=== PATIENT | female | born 1970 | race Caucasian/White ===

== ENCOUNTER 2018-02-06 19:51 | Inpatient (IN) | payer SELFPAY ==
[2018-02-06] MEDS ORDERED: NA CHLORIDE 0.9% 1,000 ML ONE (20:21)
--- NOTE | 2018-02-06 20:49 | RAD REPORT ---
EXAM DESCRIPTION: CT - Head Brain Wo Cont - 02/06/2018 8:38 pm CLINICAL HISTORY: Altered consciousness. COMPARISON: None. TECHNIQUE: All CT scans are performed using dose optimization technique as appropriate and may inclu de automated exposure control or mA/KV adjustment according to patient size. FINDINGS: No intracranial hemorrhage, hydrocephalus or extra-axial fluid collection.No areas of brai n edema or evidence of midline shift. The paranasal sinuses and mastoids are clear. The calvarium is intact. IMPRESSION: No acute intracranial abnormality.
[2018-02-06 21:04] LABS: Blood Gas Oxyhemoglobin 89.5 % (94-97); Blood O2 Saturation 91.5 % (92-98.5)
[2018-02-06 21:21] LABS: Absolute Lymphocytes (CBC) 0.9 K/uL (0.7-4.9); Absolute Monocytes 1.7 K/uL (0.1-1.3); Absolute Neutrophil 12.7 K/uL (1.8-8.0); Basophils % 0.3 % (0-1.3); Hematocrit 42.9 % (36.0-45.0); Lymphocytes % 5.8 % (15.3-44.8); MCH 31.7 pg (27.0-35.0); MCV 94.5 fL (80-100); MPV 8.3 fL (7.6-11.3); Monocytes % 10.9 % (3.3-12.3); RBC Red Blood Cell Count 4.54 M/uL (3.86-4.86)
[2018-02-06 21:36] LABS: Bicarbonate 25 mEq/L (21-31); Glucose Level 133 mg/dL (65-120); Potassium 3.2 mEq/L (3.6-5.0); Sodium Level 140 mEq/L (135-145)
[2018-02-06 21:45] LABS: Protime INR 1.22
[2018-02-06 21:46] LABS: ALT/SGPT 43 IU/L (10-60); AST/SGOT 86 IU/L (10-42); Albumin 4.5 g/dL (3.2-5.5); Alkaline Phosphatase 108 IU/L (42-121); BUN Blood Urea Nitrogen 22 mg/dL (6-20); Bilirubin Direct 0.2 mg/dL (0-0.2); Bilirubin Total 0.8 mg/dL (0.3-1.2); Protein, Total 8.5 g/dL (6.0-8.3)
[2018-02-06 22:37] LABS: Alcohol Serum/Plasma < 10 mg/dl
[2018-02-06 22:38] LABS: Creatine Phosphokinase 6501 IU/L (22-269)
[2018-02-06] MEDS ORDERED: MORPHINE 2 MG/ML SYR IV PRN (22:59)
[2018-02-06] MEDS ORDERED: ONDANSETRON 4 MG/2 ML VIAL IV PRN (22:59)
[2018-02-06] MEDS ORDERED: ACETAMINOPHEN 500 MG TAB PO PRN (22:59)
[2018-02-06] MEDS: NA CHLORIDE 0.9% 1,000 ML IV SCH (23:00)
[2018-02-06 23:15] LABS: Urine Blood 3+ (NEG); Urine Glucose NEGATIVE (NEG); Urine Protein 2+ (NEG); Urine Specific Gravity 1.025 (1.005-1.030)
[2018-02-06 23:15] LABS: Urine Specific Gravity 1.025 (1.005-1.030)
--- NOTE | 2018-02-06 23:16 | ER ---
Nurse's Notes [facility] Name: Carmina Stewart Age: 47 yrs Sex: Female : 1970 Arrival Date: 02/06/2018 Time: 19:56 Bed 3 Private MD: Harjeet Worthy T Diagnosis: Rhabdomyolysis;Adverse effect of benzodiazepines Presentation: 02/06 19:50 Presenting complaint: EMS states: that pt was found kneeling next to bed where she had fc been since 1500. Pt is oriented to person and place. Has denied suicide attempt. Has taken 60 tablets of Xanax 1 mg since the , unknown amt today. Does have abrasions to both knees. Transition of care: patient was not received from another setting of care. Onset of symptoms was February 06, 2018. Risk Assessment: Do you want to hurt yourself or someone else? Patient reports no desire to harm self or others. Initial Sepsis Screen: Does the patient meet any 2 criteria? HR > 90 bpm. Yes Does the patient have a suspected source of infection? No. Patient's initial sepsis screen is negative. Care prior to arrival: Medication(s) given: Normal saline infusion, 250 ml IV initiated. 20 GA, in the right hand, Glucose check: 152. 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 - Social history:: Smoking status: unknown. - Ebola Screening: : Unable to complete screening because patient does not understand. Screenin:03 Abuse screen: Denies threats or abuse. Nutritional screening: No deficits noted. fc Tuberculosis screening: No symptoms or risk factors identified. 02/07 01:15 Fall Risk Fall in past 12 months (25 points). Secondary diagnosis (15 points) IV access ao (20 points). Ambulatory Aid- None/Bed Rest/Nurse Assist (0 pts). Gait- Impaired (20 pts.). Mental Status- Overestimates/Forgets Limitations (15 pts.). Total Sanders Fall Scale indicates High Risk Score (45 or more points). Fall prevention measures have been instituted. Side Rails Up X 2 Placed Close to Nursing Station Frequent Obs/Assessments Occuring Family Present and informed to notify staff if the need to leave the bedside. Assessment: 02/06 20:01 General: Appears in no apparent distress. obese, unkempt, malnourished, Behavior is ao inappropriate for age, listless, uncooperative. Pain: Denies pain. Neuro: Level of Consciousness is awake, Oriented to person, Speech is slurred. Cardiovascular: Heart tones S1 S2 Capillary refill < 3 seconds Patient's skin is warm and dry. Respiratory: Airway is patent Respiratory effort is even, unlabored, Breath sounds are clear bilaterally. GI: Abdomen is obese, Bowel sounds. : Patient urinated herself. EENT: No signs and/or symptoms were reported regarding the EENT system. Derm: Skin is intact, Skin is diaphoretic, Skin is pale. Musculoskeletal: Circulation, motion, and sensation intact. Right leg flexed and stabilize on a board. 21:29 Reassessment: Patient appears in no apparent distress at this time. Patient and/or ao family updated on plan of care and expected duration. Pain level reassessed. 22:40 Reassessment: Critical CPK 6501, physician notified, no new orders obtained at this ea time. 22:49 Reassessment: Patient appears in no apparent distress at this time. Patient and/or ao family updated on plan of care and expected duration. Pain level reassessed. Patient in no appeared distress. 02/07 03:46 Reassessment: Patient denies suicidal ideation while in the ER stay. Report given to ao ICU nurse. Patient stated that she was suicidal when got the ICU. Vital Signs: 02/06 19:50 BP 145 / 93; Pulse 116; Resp 18; Temp 99.7(O); Pulse Ox 89% on R/A; Pain 0/10; fc 21:29 BP 171 / 109; Pulse 114; Pulse Ox 92% ; ao 22:42 BP 168 / 112; Pulse 109; Resp 20; Pulse Ox 93% on 5 lpm NC; ao 23:39 BP 153 / 105; Pulse 106; Resp 22; Pulse Ox 98% on R/A; ao ED Course: 19:50 Arm band placed on Patient placed in an exam room, on a stretcher. fc 19:50 Patient has correct armband on for positive identification. Placed in gown. Bed in low fc position. Call light in reach. Side rails up X2. monitor and storage bin tender on. Pulse ox on. NIBP on. 19:56 Patient arrived in ED. fc 20:00 Varinder Krishna, RN is Primary Nurse. ao 20:01 Triage completed. fc 20:01 Antonio Fontaine MD is Attending Physician. gs 20:[address] via wheelchair. mw3 20:37 CT completed. Patient tolerated procedure well. Patient moved back from CT. mw3 20:37 CT Head Brain wo Cont In Process Unspecified. EDMS 20:38 Harjeet Worthy MD is Private Physician. 23:15 Precious Benson MD is Hospitalizing Provider. 02/07 01:15 No provider procedures requiring assistance completed. Patient admitted, IV remains in ao place. Administered Medications: 02/06 21:35 Drug: NS 0.9% 1000 ml Route: IV; Rate: 1 bolus; Site: left antecubital; ao 02/07 02:27 Follow up: IV Status: Completed infusion ao 00:37 Drug: NS 0.9% 1000 ml Route: IV; Rate: 1 bolus; Site: left antecubital; ao 02:27 Follow up: IV Status: Completed infusion; IV Intake: 1000ml ao Intake: 02:27 IV: 1000ml; Total: 1000ml. ao Outcome: 02/06 23:16 Decision to Hospitalize by Provider. 02/07 01:15 Admitted to ER Hold. Please see [facility] for further documentation. ao Condition: stable Instructed on the need for admit. 03:48 Patient left the ED. ao Signatures: Dispatcher [employer] EDMS Heidy Granger RN RN Varinder Krishna RN RN ao Barbara Daniel RN RN ea Starr, Gregory, MD MD Ashley Mathews mw3 Corrections: (The following items were deleted from the chart) 02/06 20:04 19:50 Presenting complaint: EMS states: that pt was found kneeling next to bed where fc she had been since 1500. Pt is oriented to person and place. Has denied suicide attempt. Has taken 60 tablets of Xanax 1 mg since the . Does have abrasions to both knees. fc 02/07 05:13 02/06 23:39 BP 92 / 62; Pulse 106bpm; Resp 22bpm; Pulse Ox 98% RA; ao ao
--- NOTE | 2018-02-06 23:16 | EDPHYS ---
Physician Documentation [facility] Name: Carmina Stewart Age: 47 yrs Sex: Female : 1970 Arrival Date: 02/06/2018 Time: 19:56 Bed 3 Private MD: Harjeet Worthy T ED Physician Antonio Fontaine HPI: 02/06 23:06 This 47 yrs old Female presents to ER via EMS with complaints of Possible gs Overdose. 23:06 The patient presents to the emergency department after a known overdose, that was gs intentional. Context: Method: the patient has a confirmed or suspected ingestion, of benzodiazepines. Associated signs and symptoms: Pertinent positives: decreased level of consciousness. Severity of symptoms: At their worst the symptoms were moderate in the emergency department the symptoms are unchanged. The patient has experienced similar episodes in the past, a few times. 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 - Social history:: Smoking status: unknown. - Ebola Screening: : Unable to complete screening because patient does not understand. ROS: 23:06 All other systems are negative. gs Exam: 23:06 Head/Face: Normocephalic, atraumatic. Eyes: Pupils equal round and reactive to light, gs extra-ocular motions intact. Lids and lashes normal. Conjunctiva and sclera are non-icteric and not injected. Cornea within normal limits. Periorbital areas with no swelling, redness, or edema. ENT: Nares patent. No nasal discharge, no septal abnormalities noted. Tympanic membranes are normal and external auditory canals are clear. Oropharynx with no redness, swelling, or masses, exudates, or evidence of obstruction, uvula midline. Mucous membranes moist. Neck: Trachea midline, no thyromegaly or masses palpated, and no cervical lymphadenopathy. Supple, full range of motion without nuchal rigidity, or vertebral point tenderness. No Meningismus. Chest/axilla: Normal chest wall appearance and motion. Nontender with no deformity. No lesions are appreciated. 23:06 Abdomen/GI: Soft, non-tender, with normal bowel sounds. No distension or tympany. No guarding or rebound. No evidence of tenderness throughout. Back: No spinal tenderness. No costovertebral tenderness. Full range of motion. Skin: Warm, dry with normal turgor. Normal color with no rashes, no lesions, and no evidence of cellulitis. MS/ Extremity: Pulses equal, no cyanosis. Neurovascular intact. Full, normal range of motion. 23:06 Constitutional: The patient appears alert, awake. 23:06 Cardiovascular: Rate: tachycardic, Rhythm: regular, Pulses: no pulse deficits are appreciated. 23:06 ECG was reviewed by the Attending Physician. 23:06 Skin: injury, abrasion(s), very small abrasion noted, abrasion superficial. 23:06 Neuro: Orientation: to person, Cranial nerves: CN II- XII are normal as tested, Motor: moves all fours. Vital Signs: 19:50 BP 145 / 93; Pulse 116; Resp 18; Temp 99.7(O); Pulse Ox 89% on R/A; Pain 0/10; fc 21:29 BP 171 / 109; Pulse 114; Pulse Ox 92% ; ao 22:42 BP 168 / 112; Pulse 109; Resp 20; Pulse Ox 93% on 5 lpm NC; ao 23:39 BP 153 / 105; Pulse 106; Resp 22; Pulse Ox 98% on R/A; ao MDM: 20:12 Patient medically screened. gs 23:06 Differential diagnosis: Ingestion/exposure to xanax polypharmacy, hypoglycemia, closed gs head injury, intracranial hemorrhage, rhabdo. Data reviewed: vital signs, nurses notes. 02/06 20:15 Order name: Acetaminophen; Complete Time: 22:45 02/06 20:15 Order name: Basic Metabolic Panel; Complete Time: 22:45 02/06 20:15 Order name: CBC with Diff; Complete Time: 22:45 02/06 20:15 Order name: ETOH Level; Complete Time: 22:45 02/06 20:15 Order name: Hepatic Function; Complete Time: 22:45 02/06 20:15 Order name: PT-INR; Complete Time: 22:45 02/06 20:15 Order name: Salicylate; Complete Time: 22:45 02/06 20:15 Order name: Urine Drug Screen 02/06 20:15 Order name: AMMONIA 02/06 20:15 Order name: CPK; Complete Time: 22:45 02/06 20:15 Order name: ABG 02/06 23:08 Order name: Urine Dipstick--Ancillary (enter results) [facility] 02/06 23:10 Order name: Urine --Ancillary (enter results) [facility] 02/06 23:15 Order name: Urine --Ancillary; Complete Time: 00:01 EDNC 02/06 20:15 Order name: EKG; Complete Time: 20:16 02/06 20:15 Order name: EKG - Nurse/Tech; Complete Time: 20:18 02/06 20:15 Order name: IV Saline Lock; Complete Time: 20:18 02/06 20:15 Order name: Labs collected and sent; Complete Time: 23:17 02/06 20:15 Order name: Urine Dipstick-Ancillary (obtain specimen); Complete Time: 23:17 02/06 20:15 Order name: CT Head Brain wo Cont; Complete Time: 22:45 02/06 23:01 Order name: CONS Pharmacy Consult EDNC 02/06 23:01 Order name: Regular EDNC 02/06 23:16 Order name: Urine Dipstick-Ancillary; Complete Time: 00:01 EDMS EC:06 Rate is 114 beats/min. Rhythm is regular. MA interval is normal. QRS interval is gs normal. QT interval is prolonged. T waves are Flattened. Clinical impression: NSR w/ Non-specific ST/T Changes. Interpreted by me. Administered Medications: 21:35 Drug: NS 0.9% 1000 ml Route: IV; Rate: 1 bolus; Site: left antecubital; ao 02/07 02:27 Follow up: IV Status: Completed infusion ao 00:37 Drug: NS 0.9% 1000 ml Route: IV; Rate: 1 bolus; Site: left antecubital; ao 02:27 Follow up: IV Status: Completed infusion; IV Intake: 1000ml ao Disposition: 02/06/18 23:16 Hospitalization ordered by Precious Benson for Inpatient Admission. Preliminary diagnosis are Rhabdomyolysis, Adverse effect of benzodiazepines. - Bed requested for Intensive Care Unit. - Status is Inpatient Admission. ao - Condition is Stable. - Problem is new. - Symptoms have improved. UTI on Admission? No Signatures: Dispatcher [employer] EDMS Germain Ferrer 2 Maya Monreal RN RN Heidy Granger RN KIRILL Varinder Krishna RN RN ao Antonio Fontaine MD MD Corrections: (The following items were deleted from the chart) 02/06 23:18 23:16 Hospitalization Ordered by Precious Benson MD for Inpatient Admission. Preliminary diagnosis is Rhabdomyolysis; Adverse effect of benzodiazepines. Bed requested for Telemetry/MedSurg (Inpatient). Status is Inpatient Admission. Condition is Stable. Problem is new. Symptoms have improved. UTI on Admission? No. 23:19 23:18 02/06/2018 23:16 Hospitalization Ordered by Precious Benson MD for Inpatient rg2 Admission. Preliminary diagnosis is Rhabdomyolysis; Adverse effect of benzodiazepines. Bed requested for Intensive Care Unit. Status is Inpatient Admission. Condition is Stable. Problem is new. Symptoms have improved. UTI on Admission? No. 02/07 00:31 02/06 23:19 02/06/2018 23:16 Hospitalization Ordered by Precious Benson MD for Inpatient rg2 Admission. Preliminary diagnosis is Rhabdomyolysis; Adverse effect of benzodiazepines. Bed requested for Intensive Care Unit. Status is Inpatient Admission. Condition is Stable. Problem is new. Symptoms have improved. UTI on Admission? No. rg2 02/07 02:49 00:31 02/06/2018 23:16 Hospitalization Ordered by Precious Benson MD for Inpatient mw Admission. Preliminary diagnosis is Rhabdomyolysis; Adverse effect of benzodiazepines. Bed requested for [facility] ER HOLD. Status is Inpatient Admission. Condition is Stable. Problem is new. Symptoms have improved. UTI on Admission? No. rg2 03:48 02:49 02/06/2018 23:16 Hospitalization Ordered by Precious Benson MD for Inpatient ao Admission. Preliminary diagnosis is Rhabdomyolysis; Adverse effect of benzodiazepines. Bed requested for Intensive Care Unit. Status is Inpatient Admission. Condition is Stable. Problem is new. Symptoms have improved. UTI on Admission? No.
[2018-02-07 00:29] LABS: Barbiturates NEGATIVE; Benzodiazepines NEGATIVE; Cocaine NEGATIVE; METHAMPHETAM NEGATIVE (NEGATIVE); Opiates NEGATIVE; Phencyclidine NEGATIVE; THC Cannibis NEGATIVE
[2018-02-07] MEDS ORDERED: NA CHLORIDE 0.9% 1,000 ML ONE (00:37)
[2018-02-07] MEDS: NA CHLORIDE 0.9% 1,000 ML IV SCH (05:11)
[2018-02-07 05:24] LABS: Absolute Lymphocytes (CBC) 0.7 K/uL (0.7-4.9); Absolute Monocytes 0.9 K/uL (0.1-1.3); Absolute Neutrophil 12.1 K/uL (1.8-8.0); Basophils % 0.2 % (0-1.3); Hematocrit 40.8 % (36.0-45.0); Lymphocytes % 4.8 % (15.3-44.8); MCH 31.6 pg (27.0-35.0); MCV 94.6 fL (80-100); MPV 8.5 fL (7.6-11.3); Monocytes % 6.8 % (3.3-12.3); RBC Red Blood Cell Count 4.31 M/uL (3.86-4.86)
[2018-02-07 05:50] LABS: Albumin 3.8 g/dL (3.2-5.5); Bilirubin Total 0.8 mg/dL (0.3-1.2); Potassium 3.7 mEq/L (3.6-5.0); Protein, Total 6.9 g/dL (6.0-8.3)
[2018-02-07 06:11] LABS: Blood Morphology Comment NOT SEEN (NOT SEEN); Platelet Estimate ADEQ
[2018-02-07] MEDS ORDERED: MORPHINE 4 MG/ML SYR IV PRN (07:27)
[2018-02-07] MEDS ORDERED: PNEUMOCOCCAL VACCINE 0.5 ML IMVAC ONE (08:00)
--- NOTE | 2018-02-07 10:09 | RAD REPORT ---
EXAM DESCRIPTION: RAD - Chest Single View - 02/07/2018 9:23 am CLINICAL HISTORY: Pneumonia COMPARISON: 02/06/2008 FINDINGS: Portable technique limits examination quality. Linear opacities in the right lung base are noted with elevated right hemidiaphragm, probably represe nting subsegmental atelectasis. Early pneumonia in this location is difficult to rule out. The left l omer is grossly clear. The heart is normal in size. No displaced fractures.
--- NOTE | 2018-02-07 10:19 | EKG ---
Test Date: 2018-02-06 Test Time: 19:55:17 Child Health Associate: JULIO MEASUREMENT RESULTS: Intervals: Rate: 114 MT: 126 QRSD: 100 QT: 366 QTc: 504 [place]: P: 47 MT: 126 QRS: 18 T: 42 INTERPRETIVE STATEMENTS: Sinus tachycardia Nonspecific ST and T wave abnormality Abnormal ECG No previous ECG available for comparison Electronically Signed On 02-07-18 10:18:44 CDT by William Dewey
[2018-02-07 11:16] LABS: Absolute Lymphocytes (CBC) 0.9 K/uL (0.7-4.9); Absolute Monocytes 1.2 K/uL (0.1-1.3); Absolute Neutrophil 10.9 K/uL (1.8-8.0); Basophils % 0.1 % (0-1.3); Hematocrit 39.1 % (36.0-45.0); Lymphocytes % 6.7 % (15.3-44.8); MCH 31.7 pg (27.0-35.0); MCV 95.4 fL (80-100); MPV 8.7 fL (7.6-11.3); Monocytes % 9.1 % (3.3-12.3)
[2018-02-07 11:58] LABS: Magnesium 2.5 mg/dL (1.8-2.5); Phosphorus 2.6 mg/dL (2.5-4.3); Potassium 3.6 mEq/L (3.6-5.0); Thyroid Stimulating Hormone 1.75 uIU/mL (0.34-5.60)
--- NOTE | 2018-02-07 13:00 | P.PN ---
Subjective Date of Service: 02/07/18 Primary Care Provider: Dr. Worthy Chief Complaint: Overdoses intentional Subjective: Doing well (Patient doing better. Patient intentionally took medication-Xanax.) Physical Examination - Vital Signs Temperature: 98.9 F Blood Pressure: 148/77 Pulse: 78 Respirations: 13 Pulse Ox (%): 95 - Physical Exam General: Alert, In no apparent distress, Oriented x3, Cooperative HEENT: Atraumatic Neck: Supple Respiratory: Clear to auscultation bilaterally, Normal air movement Cardiovascular: Normal pulses, Regular rate/rhythm Gastrointestinal: Normal bowel sounds, Soft and benign, Non-distended, No masses , No rebound, No guarding Musculoskeletal: No tenderness, No warmth Integumentary: No tenderness/swelling, No erythema, No warmth, No cyanosis Neurological: Normal speech, Normal strength at 5/5 x4 extr, Normal tone, Abnormal affect (Poor eye contact.) - Studies Laboratory Data (last 24 hrs) 02/06/18 21:05: PT 14.4 H, INR 1.22 02/06/18 21:05: WBC 15.3 H, Hgb 14.4, Hct 42.9, Plt Count 343 02/06/18 21:05: Sodium 140, Potassium 3.2 L, BUN 22 H, Creatinine 1.09 H, Glucose 133 H, Total Bilirubin 0.8, AST 86 H, ALT 43, Alkaline Phosphatase 108 Medications List Reviewed: Yes Assessment & Plan - Problems (Diagnosis) (1) Overdose of medication Current Visit: Yes Status: Acute Plan: Patient reports intentional overdose of Xanax. Patient with depression anxiety. Patient does not Wanna talk in detail. Patient with rhabdomyolysis. Will continue IV fluids. Will monitor CPK. Will monitor and adjust electrolytes. Once improved will patient will need to be evaluated by mental health officer for possible transfer to psychiatric facility to further address. Qualifiers: Encounter type: initial encounter Injury intent: intentional self-harm Qualified Code(s): T50.902A - Poisoning by unspecified drugs, medicaments and biological substances, intentional self-harm, initial encounter (2) Suicide ideation Current Visit: Yes Status: Acute Plan: Overdose intentional. Continue with above plan of care. Patient will need psychiatric evaluation once clinically and medically stable (3) Depression with anxiety Current Visit: Yes Status: Chronic Plan: Patient appears to have depression with anxiety. Will monitor closely. (4) Rhabdomyolysis Current Visit: Yes Status: Acute Plan: Mild dehydration noted. Will continue with IV fluids. Will monitor CPK. Qualifiers: Rhabdomyolysis type: non-traumatic Qualified Code(s): M62.82 - Rhabdomyolysis (5) Atelectasis Current Visit: Yes Status: Acute Plan: Atelectasis noted to the lungs. Will provide incentive spirometer. Will monitor chest x-ray. Will wean off oxygen. (6) Elevated liver function tests Current Visit: Yes Status: Acute Plan: Likely from medication. Will monitor closely. Will check for hepatitis. (7) Hypokalemia Current Visit: Yes Status: Acute Plan: Will monitor and replace appropriately. Replacement protocol in place. Discharge Plan: Psychiatry Plan to discharge in: 48 Hours Time Spent Managing Pts Care (In Minutes): 55
[2018-02-07] MEDS: NACHLORIDE 0.45% 1,000 ML IV SCH ×2 (13:06→22:35)
--- NOTE | 2018-02-07 13:26 | P.HP ---
Certification for Inpatient Patient admitted to: Inpatient With expected LOS: >2 Midnights Patient will require the following post-hospital care: None Practitioner: I am a practitioner with admitting privileges, knowledge of patient current condition, hospital course, and medical plan of care. Services: Services provided to patient in accordance with Admission requirements found in Title 42 Section 412.3 of the Code of Federal Regulations Patient History Date of Service: 02/07/18 Reason for admission: Overdoses intentional History of Present Illness: Patient is a 47-year-old female who has a history of major depressive disorder and apparently she has been dealing with a lot of stress in her life. She lives with her mother and father in law who also have a history of depression. They tend to get along fairly well for the most part but occasionally they have arguments. Patient states that they had a disagreement and afterwards she took 50 Xanax bars. This was roughly 50 mg of Xanax. She had just got a new prescription from her primary care provider for Xanax 1 mg twice a day with 60 pills. This was filled about 5 days ago. So as long as she was using it as prescribed she had roughly 50 pills left which is what I feel she must of consumed. Initially she was very lethargic when I came to see her but she was more arousable when I came back in and visited with her. She does admit to being suicidal. However she regressed taking all that medicine. We will go ahead and have [facility] evaluate her. Patient's CPK is elevated but her renal function is stable. She is having adequate urine output. Monitor renal function as well as urine pH. May need to add bicarb to her fluids pending CPK results. Allergies Sulfa (Sulfonamide Antibiotics) Allergy (Severe, Verified 02/07/18 02:45) Itching/Hives/Rash - Past Medical/Surgical History Has patient received pneumonia vaccine in the past: No Diabetic: No -: Depression Past Surgical History: Patient denies surgical history - Family History Father Family History: Reviewed- Non-Contributory - Social History Smoking Status: Current every day smoker Alcohol use: No CD- Drugs: No Caffeine use: No Place of Residence: Home Review of Systems 10-point ROS is otherwise unremarkable Physical Examination - Vital Signs Temperature: 98.9 F Blood Pressure: 148/77 Pulse: 78 Respirations: 13 Pulse Ox (%): 95 - Physical Exam General: Alert, In no apparent distress, Oriented x3 HEENT: Atraumatic, PERRLA, Mucous membr. moist/pink, EOMI, Sclerae nonicteric Neck: Supple, 2+ carotid pulse no bruit, No LAD, Without JVD or thyroid abnormality Respiratory: Clear to auscultation bilaterally, Normal air movement Cardiovascular: Regular rate/rhythm, Normal S1 S2, No murmurs Gastrointestinal: Normal bowel sounds, Soft and benign, Non-distended, No tenderness Musculoskeletal: No clubbing, No swelling, No tenderness Integumentary: No rashes Neurological: Normal gait, Normal speech, Normal strength at 5/5 x4 extr, Normal tone, Sensation intact, Cranial nerves 3-12 intact, Normal affect Lymphatics: No axilla or inguinal lymphadenopathy - Studies Laboratory Data (last 24 hrs) 02/06/18 21:05: PT 14.4 H, INR 1.22 02/06/18 21:05: WBC 15.3 H, Hgb 14.4, Hct 42.9, Plt Count 343 02/06/18 21:05: Sodium 140, Potassium 3.2 L, BUN 22 H, Creatinine 1.09 H, Glucose 133 H, Total Bilirubin 0.8, AST 86 H, ALT 43, Alkaline Phosphatase 108 Assessment & Plan - Problems (Diagnosis) (1) Overdose of medication Current Visit: Yes Status: Acute Qualifiers: Encounter type: initial encounter Injury intent: intentional self-harm Qualified Code(s): T50.902A - Poisoning by unspecified drugs, medicaments and biological substances, intentional self-harm, initial encounter (2) Rhabdomyolysis Current Visit: Yes Status: Acute Qualifiers: Rhabdomyolysis type: non-traumatic Qualified Code(s): M62.82 - Rhabdomyolysis (3) Suicide ideation Current Visit: Yes Status: Acute (4) Depression with anxiety Current Visit: Yes Status: Chronic - Plan Plan: 1. aggressive IV hydration 2. monitor CPK level 3. suicide check hourly 4. Evaluation by [facility] 5. plan to transfer to inpatient psych facility when patient is medically stable Discharge Plan: Psychiatry Plan to discharge in: 48 Hours - Advance Directives Does patient have a Living Will: No Does patient have a Durable POA for Healthcare: No - Code Status/Comfort Care Code Status Assessed: Yes Code Status: Full Code Critical Care: No Time Spent Managing PTS Care (In Minutes): 50
[2018-02-07] MEDS ORDERED: Morphine 2 MG/2 ML SYR IV PRN (15:45)
[2018-02-07 16:55] LABS: Barbiturates NEGATIVE; Benzodiazepines NEGATIVE; Cocaine NEGATIVE; METHAMPHETAM NEGATIVE (NEGATIVE); Opiates NEGATIVE; Phencyclidine NEGATIVE; THC Cannibis NEGATIVE
[2018-02-08 05:41] LABS: Absolute Lymphocytes (CBC) 2.3 K/uL (0.7-4.9); Absolute Monocytes 1.2 K/uL (0.1-1.3); Absolute Neutrophil 8.1 K/uL (1.8-8.0); Basophils % 0.2 % (0-1.3); Eosinophils % 0.1 % (0-4.4); Hematocrit 38.2 % (36.0-45.0); MCH 31.4 pg (27.0-35.0); MCV 96.8 fL (80-100); MPV 8.8 fL (7.6-11.3); Monocytes % 10.6 % (3.3-12.3); RBC Red Blood Cell Count 3.95 M/uL (3.86-4.86)
[2018-02-08 05:47] LABS: Magnesium 2.4 mg/dL (1.8-2.5); Potassium 3.2 mEq/L (3.6-5.0)
[2018-02-08] MEDS: PANTOPRAZOLE 40MG TABLET PO SCH (05:52)
[2018-02-08] MEDS ORDERED: POTASSIUM 25 MEQ EFFERV TAB PO ONE ×2 (06:24→13:17)
--- NOTE | 2018-02-08 08:14 | RAD REPORT ---
EXAM DESCRIPTION: RAD - Chest Single View - 02/08/2018 6:39 am CLINICAL HISTORY: Atelectasis, shortness of breath COMPARISON: February 07 TECHNIQUE: AP portable chest image was obtained 0611 hours . FINDINGS: Lung volumes remain low. Shallow inspiration, portable technique and large body habitus li link the examination. Heart and vasculature remain prominent. Lung volumes are reduced compared to February 07. No new lung parenchymal process seen. No pneumothorax or large pleural effusion. No acute aortic findings suspected. IMPRESSION: Exam is significantly limited and inspiratory effort is less than prior day imaging. No new or progressive lung parenchymal process confirmed. Minimal failure or volume overload could be masked in this setting.
[2018-02-08] MEDS: NACHLORIDE 0.45% 1,000 ML IV SCH (08:30)
--- NOTE | 2018-02-08 10:42 | P.PN ---
Subjective Date of Service: 02/08/18 Primary Care Provider: Dr. Worthy Chief Complaint: Overdoses intentional Subjective: Improving (Patient in better spirits. Patient eating today.) Physical Examination - Vital Signs Temperature: 97.6 F Blood Pressure: 133/72 Pulse: 71 Respirations: 17 Pulse Ox (%): 95 - Physical Exam General: Alert, In no apparent distress, Oriented x3, Cooperative, Other ( Patient no longer suicidal) HEENT: Atraumatic Neck: Supple Respiratory: Clear to auscultation bilaterally, Normal air movement Cardiovascular: Normal pulses, Regular rate/rhythm Gastrointestinal: Normal bowel sounds, Soft and benign, Non-distended, No tenderness, No masses, No rebound, No guarding Musculoskeletal: No erythema, No tenderness, No warmth Integumentary: No tenderness/swelling, No erythema, No warmth, No cyanosis Neurological: Normal speech, Normal strength at 5/5 x4 extr, Normal tone, Normal affect - Studies Medications List Reviewed: Yes Assessment & Plan - Problems (Diagnosis) (1) Overdose of medication Current Visit: Yes Status: Acute Plan: Patient admits intentional overdose of Xanax. Patient was suicidal at that time. Patient no longer suicidal. Patient with history of bipolar disorder. Patient much improved. Patient will need mental health evaluation for close follow up prior to discharge. Doubt patient no longer needing psychiatric transfer. Will restart of Effexor. Rhabdomyolysis improved. Will ambulate with physical therapy. Qualifiers: Encounter type: initial encounter Injury intent: intentional self-harm Qualified Code(s): T50.902A - Poisoning by unspecified drugs, medicaments and biological substances, intentional self-harm, initial encounter (2) Suicide ideation Current Visit: Yes Status: Acute Plan: Patient presented with intentional overdose with suicide ideation. Patient no longer suicidal. Continue with above plan of care. Await mental health evaluation to obtain close follow up and recommendation (3) Rhabdomyolysis Current Visit: Yes Status: Acute Plan: This continues to improve. Will continue with IV fluids. Will ambulate with physical therapy. Will monitor CPK. Qualifiers: Rhabdomyolysis type: non-traumatic Qualified Code(s): M62.82 - Rhabdomyolysis (4) Atelectasis Current Visit: Yes Status: Acute Plan: Atelectasis noted to the lungs. Will provide incentive spirometer. X-ray shows no pneumonia. Will wean off oxygen (5) Elevated liver function tests Current Visit: Yes Status: Acute Plan: Likely from medication. Will monitor closely. Hepatitis panel pending (6) Hypokalemia Current Visit: Yes Status: Acute Plan: Will monitor and replace appropriately. Replacement protocol in place. (7) Bipolar disorder Current Visit: Yes Status: Chronic Plan: Await mental health evaluation and recommendation. Patient may not need psychiatric transfer. Patient will need close follow up. Qualifiers: Active/Remission status: currently active Current bipolar episode type: depressed Discharge Plan: Home Plan to discharge in: 24 Hours Time Spent Managing Pts Care (In Minutes): 55
[2018-02-08] MEDS ORDERED: FUROSEMIDE 20 MG/ 2ML VIAL IV ONE (12:18)
[2018-02-08] MEDS: VENLAFAXINE HCL 75 MG TABLET PO SCH (20:13)
[2018-02-08] MEDS ORDERED: POTASSIUM CL SA 10 MEQ TAB PO ONE (21:00)
[2018-02-09 05:17] LABS: Absolute Lymphocytes (CBC) 2.1 K/uL (0.7-4.9); Absolute Monocytes 0.9 K/uL (0.1-1.3); Absolute Neutrophil 7.2 K/uL (1.8-8.0); Basophils % 0.5 % (0-1.3); Eosinophils % 0.2 % (0-4.4); Hematocrit 38.4 % (36.0-45.0); Lymphocytes % 20.4 % (15.3-44.8); MCH 31.7 pg (27.0-35.0); MCV 95.3 fL (80-100); MPV 8.8 fL (7.6-11.3); Monocytes % 8.5 % (3.3-12.3); RBC Red Blood Cell Count 4.03 M/uL (3.86-4.86)
[2018-02-09 05:48] LABS: BUN Blood Urea Nitrogen 14 mg/dL (6-20); Bicarbonate 27 mEq/L (21-31); Glucose Level 123 mg/dL (65-120); Magnesium 2.2 mg/dL (1.8-2.5); Potassium 3.7 mEq/L (3.6-5.0); Sodium Level 142 mEq/L (135-145)
[2018-02-09 05:49] LABS: Creatine Phosphokinase 2584 IU/L (22-269)
[2018-02-09] MEDS ORDERED: NA CHLORIDE 0.9% 500 ML IV ONE (05:53)
[2018-02-09 05:54] VITALS: BMI 54.1
[2018-02-09] MEDS: PANTOPRAZOLE 40MG TABLET PO SCH (06:07)
[2018-02-09] MEDS ORDERED: POTASSIUM CL SA 10 MEQ TAB PO ONE (06:30)
[2018-02-09] MEDS: VENLAFAXINE HCL 75 MG TABLET PO SCH (08:37)
[2018-02-09] MEDS ORDERED: MONTELUKAST 10 MG TAB PO SCH (09:00)
--- NOTE | 2018-02-09 10:39 | P.DS ---
Admission Date: 02/06/18 Discharge Date: 02/09/18 Primary Care Provider: Dr. Worthy Disposition: ROUTINE DISCHARGE Discharge Condition: GOOD Reason for Admission: Overdoses intentional Consultations: Mental health provider consultation - Problems (1) Overdose of medication Current Visit: Yes Status: Acute Qualifiers: Encounter type: initial encounter Injury intent: intentional self-harm Qualified Code(s): T50.902A - Poisoning by unspecified drugs, medicaments and biological substances, intentional self-harm, initial encounter (2) Suicide ideation Current Visit: Yes Status: Acute (3) Rhabdomyolysis Current Visit: Yes Status: Acute Qualifiers: Rhabdomyolysis type: non-traumatic Qualified Code(s): M62.82 - Rhabdomyolysis (4) Atelectasis Current Visit: Yes Status: Acute (5) Elevated liver function tests Current Visit: Yes Status: Acute (6) Hypokalemia Current Visit: Yes Status: Acute (7) Bipolar disorder Current Visit: Yes Status: Chronic Qualifiers: Active/Remission status: currently active Current bipolar episode type: depressed (8) Obesity Current Visit: Yes Status: Chronic Qualifiers: Obesity type: due to excess calories Obesity classification: adult class 3 (BMI >= 40) Serious obesity comorbidity presence: with serious comorbidity Body mass index: BMI 50.0-59.9 Qualified Code(s): E66.01 - Morbid (severe) obesity due to excess calories; Z68.43 - Body mass index (BMI) 50-59.9 , adult Brief History of Present Illness: 47-year-old female with history of bipolar disorder came to the ER with altered mental status. Patient was found to have overdose of possible benzodiazepine. Patient recently filled and medication. Patient was evaluated in the emergency room. It was determined that the patient intentionally overdosed on medication. She has been under lot of stress lately. The patient was also found to have rhabdomyolysis. Hospital Course: During the course of her stay patient admitted intentional overdose of medication. She was remorseful. She did not want to do this again. When the patient was clinically stable, mental health officer evaluated the patient. There was no need for transfer to psychiatric facility. Patient has a good support system at home. Patient willing to follow up with psychiatry within the next 3 days to be further evaluated and continue her care. At discharge patient is not suicidal. At discharge patient will continue with Effexor 150 mg 1 pill twice daily and Seroquel 1200 mg at night. I will recommend to discontinue benzodiazepines. She agrees. Patient will require close psychiatric follow-up and continuation of care. Patient will likely need counseling as well. During the course of her stay the patient was found to have rhabdomyolysis. The patient was given IV fluids. CPK improved. Patient had some hypoxia due to mild overload. Patient was given diuretic therapy. This improved. At discharge she is without any hypoxia. Recommendation is to recheck lab-BMP and CPK in 1-2 weeks to monitor resolution of her rhabdomyolysis. Recommendation is to discontinue diclofenac. Recommendation is to no longer use nonsteroidal anti-inflammatories. Home medications reviewed in detail. Will discontinue diclofenac and muscle relaxer-Robaxin. Recommendation on no further use of nonsteroidal anti- inflammatories and muscle relaxers. Patient has morbid obesity. Patient may have underlying obstructive sleep apnea. Recommendation is to follow up with pulmonology to further evaluate. Patient will require sleep study to be done as an outpatient. Vital Signs/Physical Exam: Temp Pulse Resp BP Pulse Ox 97.8 F 90 24 H 120/82 96 02/09/18 08:00 02/09/18 09:00 02/08/18 20:00 02/09/18 08:00 02/09/18 09:00 General: Alert, In no apparent distress, Oriented x3, Cooperative HEENT: Atraumatic, Normocephalic, Mucous membr. moist/pink Neck: Supple, No Thyromegaly Respiratory: Clear to auscultation bilaterally, Normal air movement Cardiovascular: Normal pulses, Regular rate/rhythm Gastrointestinal: Normal bowel sounds, Soft and benign, Non-distended, No tenderness, No masses, No rebound, No guarding Musculoskeletal: No erythema, No tenderness, No warmth Integumentary: No tenderness/swelling, No erythema, No warmth, No cyanosis Neurological: Normal speech, Normal strength at 5/5 x4 extr, Normal tone, Normal affect Lymphatics: No axilla or inguinal lymphadenopathy Laboratory Data at Discharge: WBC 10.2 K/uL (4.3-10.9) 02/09/18 04:52 Hgb 12.8 g/dL (12.0-15.0) 02/09/18 04:52 Hct 38.4 % (36.0-45.0) 02/09/18 04:52 Plt Count 239 K/uL (152-406) 02/09/18 04:52 PT 14.4 SECONDS (9.5-12.5) H 02/06/18 21:05 INR 1.22 02/06/18 21:05 Sodium 142 mEq/L (135-145) 02/09/18 04:52 Potassium 3.7 mEq/L (3.6-5.0) 02/09/18 04:52 BUN 14 mg/dL (6-20) 02/09/18 04:52 Creatinine 0.63 mg/dL (0.44-1.00) 02/09/18 04:52 Glucose 123 mg/dL (65-120) H 02/09/18 04:52 Phosphorus 2.6 mg/dL (2.5-4.3) 02/07/18 10:47 Magnesium 2.2 mg/dL (1.8-2.5) 02/09/18 04:52 Total Bilirubin 0.8 mg/dL (0.3-1.2) 02/07/18 04:40 AST 105 IU/L (10-42) H 02/07/18 04:40 ALT 58 IU/L (10-60) 02/07/18 04:40 Alkaline Phosphatase 98 IU/L (42-121) 02/07/18 04:40 Home Medications: Montelukast [Singulair*] 10 mg PO DAILY 02/07/18 Rizatriptan Benzoate [Rizatriptan] 10 mg PO DAILY PRN 02/07/18 Venlafaxine HCl [Effexor*] 150 mg PO BID 02/07/18 Quetiapine Fumarate [Seroquel] 1,200 mg PO BEDTIME 02/08/18 Patient Discharge Instructions: 1. Patient will need to follow up with a PCP in 1 week to follow up this hospitalization. 2. Patient presented with intentional overdose. Patient with history of bipolar disorder. Patient evaluated by mental health officer. Patient no longer suicidal at this time. Patient remorseful. No need for psychiatric transfer. At discharge patient will continue with Effexor 150 mg 1 pill twice daily and Seroquel 1200 mg at bedtime. Recommendation is to discontinue muscle relaxers and benzodiazepines. Patient is in agreement. Patient will follow up with psychiatry in the next 3 -5 days to follow up this hospitalization and continue her care. Patient will require continued psychiatric care and counseling. 3. Patient found to have rhabdomyolysis. This is resolving. Recommendation is to recheck lab-BMP and CPK in 1 week to monitor resolution. Patient will need to maintain adequate oral intake. 4. Lifestyle modification education will be provided. 5. Patient likely has underlying obstructive sleep apnea. Recommendation is for the patient to follow up with pulmonology as an outpatient to further monitor and address. Patient will need sleep study as an outpatient to evaluate. 6. At discharge, home medications have been reviewed. Will recommend to discontinue diclofenac due to the rhabdomyolysis. Recommendation on no further use of nonsteroidal anti-inflammatories. I will also recommend to discontinue Robaxin. Diet: AHA Activity: Ad nohemi Time spent managing pt's care (in minutes): 55
[2018-02-09] MEDS ORDERED: ENOXAPARIN 40 MG/0.4 ML SQ SCH (12:53)
[2018-02-09 13:22] VITALS: O2SAT 99
[2018-02-09 14:26] VITALS: BP 130/91; TEMP 98
[2018-02-09] MEDS ORDERED: QUETIAPINE 100MG TAB PO SCH (21:00)
== END 2018-02-09 14:20 | disposition home or self-care (01) | DRG 918 ==
LOC: ER 19:51 → ERHOLD 23:03 → 3RD-ICU 02-07 03:02
PROVIDERS: ADMIT Hospitalist; ATTEND Hospitalist
DX: T42.4X2A Poisoning by benzodiazepines, intentional self-harm, initial encounter (principal); Z68.43 Body mass index [BMI] 50.0-59.9, adult; M62.82 Rhabdomyolysis; J98.11 Atelectasis; R41.82 Altered mental status, unspecified; Y92.009 Unspecified place in unspecified non-institutional (private) residence as the place of occurrence of the external cause; E66.01 Morbid (severe) obesity due to excess calories; R79.89 Other specified abnormal findings of blood chemistry; E87.6 Hypokalemia; F31.9 Bipolar disorder, unspecified
CPT/HCPCS: 36415; 70450; 71045; 80048; 80053; 80076; 80307; 80320; 80329; 81003; 81025; 82140; 82550; 82805; 83735; 84100; 84132; 84439; 84443; 85025; 85610; 93005; 96360; 96361; 97163; 99285; J1940; J2270; J7030

== ENCOUNTER 2018-02-09 18:12 | Emergency (ER) | payer SELFPAY ==
--- NOTE | 2018-02-09 21:42 | EDPHYS ---
Physician Documentation [facility] Name: Carmina Stewart Age: 47 yrs Sex: Female : 1970 Arrival Date: 02/09/2018 Time: 18:26 Bed 3 Private MD: Harjeet Worthy T ED Physician Baldo Armstrong HPI: 02/09 21:00 This 47 yrs old Female presents to ER via EMS with complaints of General pm1 Weakness. 21:00 The patient presents with generalized weakness. Onset: The symptoms/episode pm1 began/occurred today. Context: occurred at home, occurred while the patient was trying to stand up from bed. just prior to the episode the patient experienced no apparent symptoms. Modifying factors: The symptoms are alleviated by nothing, the symptoms are aggravated by nothing. Associated signs and symptoms: Pertinent positives: Burning with urination today. Severity of symptoms: in the emergency department the symptoms are unchanged. Patient's baseline: Neuro: alert and fully oriented, Motor: no deficits, Ambulation: walks without assistance, Speech: normal. The patient has been recently been admitted at [facility], was discharged earlier today. Patient discharged today from [facility] for Xanax overdose and rhabdomyolysis. Patient discharge at 1400 today. Patient was able to walk 100 feet with PT today. Patient got home and sat down in her sister's chair. She was unable to get up. Sister was concerned that she would not be able to get up and ambulate around and potentially worsen her rhabdomyolysis.. 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 - Social history:: Smoking status: unknown. - Ebola Screening: : Patient negative for fever greater than or equal to 101.5 degrees Fahrenheit, and additional compatible Ebola Virus Disease symptoms Patient denies exposure to infectious person Patient denies travel to an Ebola-affected area in the 21 days before illness onset No symptoms or risks identified at this time. ROS: 21:00 Constitutional: Negative for fever, chills, and weight loss, Eyes: Negative for injury, pm1 pain, redness, and discharge, ENT: Negative for injury, pain, and discharge, Neck: Negative for injury, pain, and swelling, Cardiovascular: Negative for chest pain, palpitations, and edema, Respiratory: Negative for shortness of breath, cough, wheezing, and pleuritic chest pain, Abdomen/GI: Negative for abdominal pain, nausea, vomiting, diarrhea, and constipation, Back: Negative for injury and pain. 21:00 MS/Extremity: Negative for injury and deformity, Skin: Negative for injury, rash, and discoloration. 21:00 : Positive for burning with urination. 21:00 Neuro: Positive for weakness, of the right leg and left leg. Exam: 21:00 Constitutional: This is a well developed, well nourished patient who is awake, alert, pm1 and in no acute distress. Head/Face: Normocephalic, atraumatic. Eyes: Pupils equal round and reactive to light, extra-ocular motions intact. Lids and lashes normal. Conjunctiva and sclera are non-icteric and not injected. Cornea within normal limits. Periorbital areas with no swelling, redness, or edema. ENT: Nares patent. No nasal discharge, no septal abnormalities noted. Tympanic membranes are normal and external auditory canals are clear. Oropharynx with no redness, swelling, or masses, exudates, or evidence of obstruction, uvula midline. Mucous membranes moist. Neck: Trachea midline, no thyromegaly or masses palpated, and no cervical lymphadenopathy. Supple, full range of motion without nuchal rigidity, or vertebral point tenderness. No Meningismus. Chest/axilla: Normal chest wall appearance and motion. Nontender with no deformity. No lesions are appreciated. Cardiovascular: Regular rate and rhythm with a normal S1 and S2. No gallops, murmurs, or rubs. Normal PMI, no JVD. No pulse deficits. Respiratory: Lungs have equal breath sounds bilaterally, clear to auscultation and percussion. No rales, rhonchi or wheezes noted. No increased work of breathing, no retractions or nasal flaring. 21:00 Back: No spinal tenderness. No costovertebral tenderness. Full range of motion. Skin: Warm, dry with normal turgor. Normal color with no rashes, no lesions, and no evidence of cellulitis. 21:00 Abdomen/GI: Inspection: obese Bowel sounds: normal, Palpation: abdomen is soft and non-tender. 21:00 Musculoskeletal/extremity: Extremities: all appear grossly normal, with no appreciated pain with palpation, ROM: intact in all extremities, full active range of motion, in all extremities, Sensation intact. 21:00 Neuro: Orientation: is normal, Mentation: is normal, Motor: moves all fours, Sensation: is normal, no obvious gross deficits, Deep tendon reflexes are 2+ (normal) in the right patellar, right Achilles, left patellar and left Achilles, Babinski testing is normal. Vital Signs: 18:14 BP 150 / 105; Pulse 100; Resp 20; Pulse Ox 95% on R/A; Weight 140.61 kg (R); Height 5 sg ft. 9 in. (175.26 cm) (R); Pain 10/10; 19:30 BP 153 / 94; Pulse 101; Resp 16; Pulse Ox 90% on R/A; bp 21:00 BP 147 / 99; Pulse 106; Resp 20; Pulse Ox 96% ; bp 22:00 BP 145 / 97; Pulse 101; Resp 16; Pulse Ox 95% ; bp 18:14 Body Mass Index 45.78 (140.61 kg, 175.26 cm) sg MDM: 18:31 Patient medically screened. briana 21:05 ED course: Patient stood at bedside and able to take some steps with assistance. pm1 21:05 Data reviewed: vital signs. Data interpreted:. pm1 21:41 Counseling: I had a detailed discussion with the patient and/or guardian regarding: the pm1 historical points, exam findings, and any diagnostic results supporting the discharge/admit diagnosis, lab results, the need for outpatient follow up, to return to the emergency department if symptoms worsen or persist or if there are any questions or concerns that arise at home. 02/09 18:50 Order name: UDS pm1 02/09 21:40 Order name: Urine Microscopic Only pm1 02/09 18:50 Order name: Urine Dipstick-Ancillary (obtain specimen); Complete Time: 21:47 pm1 02/09 21:49 Order name: Urine Dipstick--Ancillary (enter results) eb 02/09 21:49 Order name: Urine --Ancillary (enter results) eb Administered Medications: 21:50 Drug: Rocephin (cefTRIAXone) 1 grams Route: IM; Site: left gluteus; mg2 22:11 Follow up: Response: No adverse reaction bp Disposition: 02/10 09:35 Co-signature as Attending Physician, Baldo Armstrong MD I agree with the assessment and briana plan of care. Disposition: 02/09/18 21:42 Discharged to Home. Impression: Urinary tract infection, site not specified. - Condition is Stable. - Discharge Instructions: Urinary Tract Infection. - Prescriptions for Macrobid 100 mg Oral Capsule - take 1 capsule by ORAL route every 12 hours for 10 days; 20 capsule. - Medication Reconciliation Form, Thank You Letter, Antibiotic Education form. - Follow up: Emergency Department; When: As needed; Reason: Worsening of condition. Follow up: Harjeet Worthy MD; When: 2 - 3 days; Reason: Recheck today's complaints, Continuance of care, Re-evaluation by your physician. - Problem is new. - Symptoms have improved. Signatures: Dispatcher [employer] EDMS Pasquale Michael, RN RN Baldo Armstrong MD MD [facility] Dimas De Leon, CHILDREN'S PROGRAM COORDINATOR CHILDREN'S PROGRAM COORDINATOR pm1 Abdifatah Menon RN RN bp Mata Staples RN RN mg2 Corrections: (The following items were deleted from the chart) 02/09 22:13 21:42 02/09/2018 21:42 Discharged to Home. Impression: Urinary tract infection, site bp not specified. Condition is Stable. Forms are Medication Reconciliation Form, Thank You Letter, Antibiotic Education, Prescription Opioid Use. Follow up: Emergency Department; When: As needed; Reason: Worsening of condition. Follow up: Harjeet Worthy; When: 2 - 3 days; Reason: Recheck today's complaints, Continuance of care, Re-evaluation by your physician. Problem is new. Symptoms have improved. pm1
--- NOTE | 2018-02-09 21:42 | ER ---
Nurse's Notes [facility] Name: Carmina Stewart Age: 47 yrs Sex: Female : 1970 Arrival Date: 02/09/2018 Time: 18:26 Bed 3 Private MD: Harjeet Worthy T Diagnosis: Urinary tract infection, site not specified Presentation: 02/09 18:17 Presenting complaint: EMS states: pt was recently discharged from the ICU here at [facility] for an overdose of xanax about two days ago. pt reports feeling weak in her legs and unable to stand on her own. EMS report that the pt was able to transfer from the couch/bed to the EMS stretcher. Transition of care: patient was not received from another setting of care. Onset of symptoms was February 09, 2018. Risk Assessment: Do you want to hurt yourself or someone else? Patient reports no desire to harm self or others. Initial Sepsis Screen: Does the patient meet any 2 criteria? No. Patient's initial sepsis screen is negative. Does the patient have a suspected source of infection? No. Patient's initial sepsis screen is negative. Care prior to arrival: None. 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 - Social history:: Smoking status: unknown. - Ebola Screening: : Patient negative for fever greater than or equal to 101.5 degrees Fahrenheit, and additional compatible Ebola Virus Disease symptoms Patient denies exposure to infectious person Patient denies travel to an Ebola-affected area in the 21 days before illness onset No symptoms or risks identified at this time. Screenin:00 Abuse screen: Denies threats or abuse. Denies injuries from another. Nutritional bp screening: No deficits noted. Tuberculosis screening: No symptoms or risk factors identified. Fall Risk No fall in past 12 months (0 pts). Secondary diagnosis (15 points) impaired mobility, No IV (0 pts). Ambulatory Aid- None/Bed Rest/Nurse Assist (0 pts). Gait- Normal/Bed Rest/Wheelchair (0 pts) Mental Status- Oriented to own ability (0 pts). Total Sanders Fall Scale indicates No Risk (0-24 pts). Assessment: 19:00 General: Appears in no apparent distress. comfortable, obese, Behavior is calm, bp cooperative, appropriate for age, RECD REPORT FROM PSAQUALE ROY. 47YO WF P/W GEN WKN, D/C FROM ICU FOR XANAX OD \T\ 1400. PT AND FAMILY REPORT PT UNABLE TO STAND OR AMBULATE AT HOME, RETURNED VIA EMS. NO OBJECTIVE NEURO FINDINGS. 19:00 Pain: Denies pain. Neuro: Level of Consciousness is awake, alert, obeys commands, bp Oriented to person, place, time, situation, Appropriate for age. Cardiovascular: Rhythm is sinus tachycardia. Respiratory: Airway is patent Respiratory effort is even, unlabored, Respiratory pattern is regular, symmetrical. GI: No signs and/or symptoms were reported involving the gastrointestinal system. : No signs and/or symptoms were reported regarding the genitourinary system. EENT: No deficits noted. Derm: No deficits noted. Musculoskeletal: Circulation, motion, and sensation intact. Range of motion: intact in all extremities. 21:00 Reassessment: PROVIDER AT B/S FOR NEURO EVAL. PT REMAINS NEURO INTACT, NOTED TO MOVE UP bp IN BED UNDER OWN POWER, MOVING ALL EXTREMITIES WITH FULL FUNCTION. 21:17 Reassessment: PT UP TO USE COMMODE, STANDING AND AMBULATING WITHOUT DIFFICULTY. bp 22:10 Reassessment: PT D/C HOME WITH FAMILY, DX WITH UTI. bp Vital Signs: 18:14 BP 150 / 105; Pulse 100; Resp 20; Pulse Ox 95% on R/A; Weight 140.61 kg (R); Height 5 sg ft. 9 in. (175.26 cm) (R); Pain 10/10; 19:30 BP 153 / 94; Pulse 101; Resp 16; Pulse Ox 90% on R/A; bp 21:00 BP 147 / 99; Pulse 106; Resp 20; Pulse Ox 96% ; bp 22:00 BP 145 / 97; Pulse 101; Resp 16; Pulse Ox 95% ; bp 18:14 Body Mass Index 45.78 (140.61 kg, 175.26 cm) ED Course: 18:26 Patient arrived in ED. sg 18:27 Harjeet Worthy MD is Private Physician. sg 18:29 Triage completed. sg 18:29 Arm band placed on. sg 18:31 Dimas De Leon NP is PHCP. pm1 18:31 Baldo Armstrong MD is Attending Physician. pm1 19:00 Patient has correct armband on for positive identification. Bed in low position. Call bp light in reach. Side rails up X2. Adult w/ patient. 19:14 Abdifatah Menon, RN is Primary Nurse. bp 21:41 Harjeet Worthy MD is Referral Physician. pm1 22:10 No provider procedures requiring assistance completed. Patient did not have IV access bp during this emergency room visit. Administered Medications: 21:50 Drug: Rocephin (cefTRIAXone) 1 grams Route: IM; Site: left gluteus; mg2 22:11 Follow up: Response: No adverse reaction bp Outcome: 21:42 Discharge ordered by MD. pm1 22:10 Discharged to home ambulatory, with family. bp 22:10 Condition: stable 22:10 Discharge instructions given to patient. 22:13 Patient left the ED. bp Addendum: 02/14/2018 08:41 Addendum: Culture Results: Positive urine culture. No further action required. Bacteria s s sensitive to prescribed antibiotic. Signatures: Pasquale Michael, RN KIRILL Yane Ochoa RN RN Dimas De Leon NP BEAD WIRE TAPER pm1 Abdifatah Menon RN RN bp Mata Staples RN RN mg2
[2018-02-09] MEDS ORDERED: CEFTRIAXONE 1000 MG/VIAL ONE (21:44)
[2018-02-09] MEDS ORDERED: WATER FOR INJ,STERILE 10 ML ONE (21:45)
[2018-02-09 21:57] LABS: Urine Blood 1+ (NEG); Urine Glucose NEGATIVE (NEG); Urine Protein NEGATIVE (NEG); Urine Specific Gravity 1.015 (1.005-1.030)
[2018-02-09 22:10] LABS: Barbiturates NEGATIVE; Benzodiazepines NEGATIVE; Cocaine NEGATIVE; METHAMPHETAM NEGATIVE (NEGATIVE); Opiates NEGATIVE; Phencyclidine NEGATIVE; THC Cannibis NEGATIVE
[2018-02-09 22:20] VITALS: BP 145/97; O2SAT 95
[2018-02-09 23:08] LABS: Urine Bacteria >50 /HPF (<20); Urine Culture Reflex Order REFLEXED
[2018-02-09 23:09] LABS: Urine RBC <5 /HPF (NONE SEEN)
== END 2018-02-09 22:13 | disposition home or self-care (01) ==
LOC: ER 18:12
DX: N39.0 Urinary tract infection, site not specified (principal); F32.9 Major depressive disorder, single episode, unspecified; Z88.2 Allergy status to sulfonamides
CPT/HCPCS: 80307; 81003; 81015; 81025; 87077; 87086; 87088; 87186; 96372; 99284

== ENCOUNTER 2020-07-12 11:12 | Emergency (ER) | payer SELFPAY ==
--- OUTSIDE RECORDS SUMMARY | 2020-07-12 11:18 | XMS REPORT | Continuity of Care Document ---
:1970 Author Organization [facility] t Address [address] [place] [address] Dr. Genao [address] [place] [id number] Care Team Providers Name Role Phone Unavailable Unavailable Unavailable Problems This patient has no known problems. Allergies, Adverse Reactions, Alerts This patient has no known allergies or adverse reactions. Medications This patient has no known medications. Procedures This patient has no known procedures. Results This patient has no known results.
[2020-07-12] MEDS ORDERED: KETOROLAC 30 MG/ML INJ ONE (12:04)
[2020-07-12] MEDS ORDERED: PROMETHAZINE INJ 25 MG/ML AMP ONE ×2 (12:04→13:16)
[2020-07-12] MEDS ORDERED: NA CHLORIDE 0.9% 1,000 ML ONE (12:04)
--- NOTE | 2020-07-12 13:07 | ER ---
Nurse's Notes [facility] Name: Carmina Stewart Age: 49 yrs Sex: Female : 1970 Arrival Date: 07/12/2020 Time: 11:16 Bed 20 Private MD: Diagnosis: Migraine Presentation: 07/12 11:28 Chief complaint: Patient states: LEYVA with N/V for 5 days. Maxalt not helping. Lots of ll1 stress lately. Coronavirus screen: Client denies travel out of the [place] in the last 14 days. At this time, the client does not indicate any symptoms associated with coronavirus-19. Ebola Screen: Patient denies travel to an Ebola-affected area in the 21 days before illness onset. Initial Sepsis Screen: Does the patient meet any 2 criteria? No. Patient's initial sepsis screen is negative. Does the patient have a suspected source of infection? Yes: Other: headache. Risk Assessment: Do you want to hurt yourself or someone else? Patient reports no desire to harm self or others. Onset of symptoms was July 08, 2020. 11:28 Method Of Arrival: Ambulatory ll1 11:28 Acuity: ARIES 3 ll1 Historical: - Allergies: 11:27 Sulfa (Sulfonamide Antibiotics); ll1 11:27 Latex, Natural Rubber; ll1 11:27 Adhesives; ll1 - PMHx: 11:27 Depression; Hypertension; Anxiety; ll1 - PSHx: 11:27 Cholecystectomy; Tonsillectomy; ll1 - Immunization history:: Flu vaccine is up to date. - Social history:: Smoking status: Patient reports the use of cigarette tobacco products, smokes one-half pack cigarettes per day. Screenin:30 Abuse screen: Denies threats or abuse. Denies injuries from another. Nutritional hb screening: No deficits noted. Tuberculosis screening: No symptoms or risk factors identified. Fall Risk None identified. Assessment: 11:31 General: Appears in no apparent distress. Behavior is calm, cooperative. Pain: Pain hb currently is 10 out of 10 on a pain scale. Neuro: Level of Consciousness is awake, alert, obeys commands, Oriented to person, place, time, situation, Reports headache. Cardiovascular: Capillary refill < 3 seconds Patient's skin is warm and dry. Respiratory: Respiratory effort is even, unlabored, Respiratory pattern is regular, symmetrical. GI: Reports nausea, vomiting. : No signs and/or symptoms were reported regarding the genitourinary system. EENT: No signs and/or symptoms were reported regarding the EENT system. Derm: Skin is pink, warm \T\ dry. Musculoskeletal: No signs and/or symptoms reported regarding the musculoskeletal system. 12:45 Reassessment: Patient appears in no apparent distress at this time. Patient and/or hb family updated on plan of care and expected duration. Pain level reassessed. Patient is alert, oriented x 3, equal unlabored respirations, skin warm/dry/pink. 13:32 Reassessment: Patient appears in no apparent distress at this time. Patient and/or hb family updated on plan of care and expected duration. Pain level reassessed. Patient is alert, oriented x 3, equal unlabored respirations, skin warm/dry/pink. Vital Signs: 11:28 BP 166 / 93; Pulse 75; Resp 17; Temp 98.2; Pulse Ox 99% ; Weight 146.51 kg; Height 5 ll1 ft. 10 in. (177.80 cm); Pain 10/10; 12:54 BP 146 / 82; Pulse 64; Resp 16; Pulse Ox 97% on R/A; Pain 8/10; hb 11:28 Body Mass Index 46.35 (146.51 kg, 177.80 cm) ll1 Pedro Coma Score: 13:54 Eye Response: spontaneous(4). Verbal Response: oriented(5). Motor Response: obeys kb commands(6). Total: 15. ED Course: 11:16 Patient arrived in ED. mr 11:27 Arm band placed on. ll1 11:29 Triage completed. ll1 11:30 Patient has correct armband on for positive identification. Bed in low position. Call light in reach. 11:35 Viridiana [facility]C [facility] kb 11:35 Precious Arias MD is Attending Physician. kb 11:49 Maribeth Multani, KIRILL is Primary Nurse. hb 12:03 Inserted saline lock: 20 gauge in right hand, using aseptic technique. hb 13:32 No provider procedures requiring assistance completed. IV discontinued, intact, hb bleeding controlled, No redness/swelling at site. Administered Medications: 11:48 CANCELLED (Duplicate Order): Benadryl 12.5 mg IVP once kb 12:03 Drug: NS 0.9% 1000 ml Route: IV; Rate: 1000 ml; Site: right hand; hb 13:33 Follow up: Response: No adverse reaction; IV Status: Completed infusion; IV Intake: hb 1000ml 12:03 Drug: Phenergan 12.5 mg Route: IVP; Site: right hand; hb 12:45 Follow up: Response: No adverse reaction hb 12:03 Drug: TORadol - Ketorolac 15 mg Route: IVP; Site: right hand; hb 12:45 Follow up: Response: No adverse reaction hb 13:09 Drug: [place] 10 mg-325 mg 1 tabs Route: PO; hb 13:34 Follow up: Response: No adverse reaction hb 13:09 Drug: Phenergan 12.5 mg Route: IVP; Site: right hand; hb 13:33 Follow up: Response: No adverse reaction hb Intake: 13:33 IV: 1000ml; Total: 1000ml. hb Outcome: 13:07 Discharge ordered by MD. kb 13:32 Discharged to home ambulatory. hb 13:32 Condition: stable 13:32 Discharge instructions given to patient, Instructed on discharge instructions, follow up and referral plans. medication usage, Demonstrated understanding of instructions, follow-up care, medications, Prescriptions given X 1. 13:33 Patient left the ED. hb Signatures: Viridiana Diaz, MIKA ZHENG-Sheridan Brooks mr Maribeth Multani, RN RN Evin Jhaveri RN RN ll1
--- NOTE | 2020-07-12 13:07 | EDPHYS ---
Physician Documentation [facility] Name: Carmina Stewart Age: 49 yrs Sex: Female : 1970 Arrival Date: 07/12/2020 Time: 11:16 Bed 20 Private MD: ED Physician Precious Arias HPI: 07/12 13:51 This 49 yrs old Female presents to ER via Ambulatory with complaints of kb Headache. 13:51 The patient complains of pain to the forehead. The patient describes the headache as kb constant, throbbing. Onset: The symptoms/episode began/occurred 4 day(s) ago. Associated signs and symptoms: Pertinent positives: nausea, Photophobia. Severity of symptoms: At its worst the pain was moderate, in the emergency department the pain is unchanged. Headache History: The patient has had previous headaches and this one is similar to previous episodes. The symptoms are alleviated by nothing. the symptoms are aggravated by lights, noise. The patient has experienced similar episodes in the past, chronically. The patient has not recently seen a physician. Pt reports migraine for 4 days. States she has taken maxalt, but it hasn't helped this time. Normally goes to [facility] and gets phenergan and norco when they are this bad, but Dr Benson is unavailable. Historical: - Allergies: 11:27 Sulfa (Sulfonamide Antibiotics); ll1 11:27 Latex, Natural Rubber; ll1 11:27 Adhesives; ll1 - PMHx: 11:27 Depression; Hypertension; Anxiety; ll1 - PSHx: 11:27 Cholecystectomy; Tonsillectomy; ll1 - Immunization history:: Flu vaccine is up to date. - Social history:: Smoking status: Patient reports the use of cigarette tobacco products, smokes one-half pack cigarettes per day. ROS: 13:53 Constitutional: Negative for fever, chills, and weight loss, Eyes: Negative for injury, kb pain, redness, and discharge, Cardiovascular: Negative for chest pain, palpitations, and edema, Respiratory: Negative for shortness of breath, cough, wheezing, and pleuritic chest pain, Abdomen/GI: Negative for abdominal pain, nausea, vomiting, diarrhea, and constipation, MS/Extremity: Negative for injury and deformity, Skin: Negative for injury, rash, and discoloration, Neuro: Negative for headache, weakness, numbness, tingling, and seizure. Exam: 13:54 Constitutional: This is a well developed, well nourished patient who is awake, alert, kb and in no acute distress. Head/Face: Normocephalic, atraumatic. Chest/axilla: Normal chest wall appearance and motion. Nontender with no deformity. No lesions are appreciated. Cardiovascular: Regular rate and rhythm with a normal S1 and S2. No gallops, murmurs, or rubs. Normal PMI, no JVD. No pulse deficits. Respiratory: Lungs have equal breath sounds bilaterally, clear to auscultation and percussion. No rales, rhonchi or wheezes noted. No increased work of breathing, no retractions or nasal flaring. Abdomen/GI: Soft, non-tender, with normal bowel sounds. No distension or tympany. No guarding or rebound. No evidence of tenderness throughout. Skin: Warm, dry with normal turgor. Normal color with no rashes, no lesions, and no evidence of cellulitis. MS/ Extremity: Pulses equal, no cyanosis. Neurovascular intact. Full, normal range of motion. Neuro: Awake and alert, GCS 15, oriented to person, place, time, and situation. Cranial nerves II-XII grossly intact. Motor strength 5/5 in all extremities. Sensory grossly intact. Cerebellar exam normal. Normal gait. Vital Signs: 11:28 BP 166 / 93; Pulse 75; Resp 17; Temp 98.2; Pulse Ox 99% ; Weight 146.51 kg; Height 5 ll1 ft. 10 in. (177.80 cm); Pain 10/10; 12:54 BP 146 / 82; Pulse 64; Resp 16; Pulse Ox 97% on R/A; Pain 8/10; hb 11:28 Body Mass Index 46.35 (146.51 kg, 177.80 cm) ll1 Pedro Coma Score: 13:54 Eye Response: spontaneous(4). Verbal Response: oriented(5). Motor Response: obeys kb commands(6). Total: 15. MDM: 11:35 Patient medically screened. kb 13:54 Data reviewed: vital signs, nurses notes. Data interpreted: Pulse oximetry: on room air kb is 97 %. Interpretation: normal. Counseling: I had a detailed discussion with the patient and/or guardian regarding: the historical points, exam findings, and any diagnostic results supporting the discharge/admit diagnosis, the need for outpatient follow up, a family practitioner, a neurologist, to return to the emergency department if symptoms worsen or persist or if there are any questions or concerns that arise at home. 07/12 11:48 Order name: IV Start; Complete Time: 12:03 kb Administered Medications: 11:48 CANCELLED (Duplicate Order): Benadryl 12.5 mg IVP once kb 12:03 Drug: NS 0.9% 1000 ml Route: IV; Rate: 1000 ml; Site: right hand; hb 13:33 Follow up: Response: No adverse reaction; IV Status: Completed infusion; IV Intake: hb 1000ml 12:03 Drug: Phenergan 12.5 mg Route: IVP; Site: right hand; hb 12:45 Follow up: Response: No adverse reaction hb 12:03 Drug: TORadol - Ketorolac 15 mg Route: IVP; Site: right hand; hb 12:45 Follow up: Response: No adverse reaction hb 13:09 Drug: [place] 10 mg-325 mg 1 tabs Route: PO; hb 13:34 Follow up: Response: No adverse reaction hb 13:09 Drug: Phenergan 12.5 mg Route: IVP; Site: right hand; hb 13:33 Follow up: Response: No adverse reaction hb Disposition: 15:35 Co-signature as Attending Physician, Precious Arias MD. ma2 Disposition: 07/12/20 13:07 Discharged to Home. Impression: Migraine. - Condition is Stable. - Discharge Instructions: Migraine Headache, [id number]. - Prescriptions for promethazine 25 mg Oral Tablet - take 1 tablet by ORAL route every 6 hours As needed; 20 tablet. - Medication Reconciliation Form, Thank You Letter, Antibiotic Education, Prescription Opioid Use form. - Follow up: Emergency Department; When: As needed; Reason: Worsening of condition. Follow up: Private Physician; When: 2 - 3 days; Reason: Recheck today's complaints, Continuance of care, Re-evaluation by your physician. Signatures: Viridiana Diaz, Maribeth Robles RN RN Precious Arias MD MD wi2 Evin Robins RN RN 1 Corrections: (The following items were deleted from the chart) 11:48 11:48 Benadryl 12.5 mg IVP once ordered. kb kb 13:33 13:07 07/12/2020 13:07 Discharged to Home. Impression: Migraine. Condition is Stable. hb Forms are Medication Reconciliation Form, Thank You Letter, Antibiotic Education, Prescription Opioid Use. Follow up: Emergency Department; When: As needed; Reason: Worsening of condition. Follow up: Private Physician; When: 2 - 3 days; Reason: Recheck today's complaints, Continuance of care, Re-evaluation by your physician. kb
[2020-07-12] MEDS ORDERED: HYDROCODONE/APAP 10/325 TAB ONE (13:17)
[2020-07-12 13:49] VITALS: TEMP 98.2
[2020-07-12 13:50] VITALS: BP 146/82; O2SAT 97
== END 2020-07-12 13:33 | disposition home or self-care (01) ==
LOC: ER 11:12
DX: G43.909 Migraine, unspecified, not intractable, without status migrainosus (principal); I10 Essential (primary) hypertension; F17.210 Nicotine dependence, cigarettes, uncomplicated; Z88.2 Allergy status to sulfonamides; Z91.040 Latex allergy status; Z91.048 Other nonmedicinal substance allergy status
CPT/HCPCS: 96361; 96374; 96375; 99283; J2550; J7030

== ENCOUNTER 2020-08-08 07:09 | Emergency (ER) | payer SELFPAY ==
--- OUTSIDE RECORDS SUMMARY | 2020-08-08 07:13 | XMS REPORT | Continuity of Care Document ---
:1970 Author Organization [facility] t Address [address] [place] [address] Dr. Genao [address] [place] [id number] Care Team Providers Name Role Phone Unavailable Unavailable Unavailable Problems This patient has no known problems. Allergies, Adverse Reactions, Alerts This patient has no known allergies or adverse reactions. Medications This patient has no known medications. Procedures This patient has no known procedures. Results This patient has no known results.
--- NOTE | 2020-08-08 07:51 | RAD REPORT ---
EXAM DESCRIPTION: CT - Head Brain Wo Cont - 08/08/2020 7:43 am CLINICAL HISTORY: fall pain COMPARISON: Head Brain Wo Cont dated 02/06/2018 TECHNIQUE: Axial 5 mm thick images of the head were obtained without IV contrast. All CT scans are performed using dose optimization technique as appropriate and may include automated exposure control or mA/KV adjustment according to patient size. FINDINGS: No intracranial hemorrhage, mass, edema or shift of mid-line structures. No acute infarcti on changes seen. No abnormal extra-axial fluid collections. Ventricles are normal. Mastoid air cells and visualized portions of the paranasal sinuses are clear. No acute bony findings. No significant change from comparison IMPRESSION: Negative non-contrast CT head examination.
[2020-08-08] MEDS ORDERED: HYDROCODONE/APAP 5/325 MG TAB ONE (08:13)
--- NOTE | 2020-08-08 08:48 | RAD REPORT ---
EXAM DESCRIPTION: RAD - Knee Left 3 View - 08/08/2020 8:15 am CLINICAL HISTORY: PAIN, pain after fall COMPARISON: No comparisons FINDINGS: No acute fracture seen. No dislocation or periosteal reaction. Moderate severity medial co mpartment narrowing seen with marginal spurring in the medial and lateral compartments. Significant p atella femoral joint space narrowing present with large patella marginal spurs. Patient has large int ra-articular calcifications in the suprapatellar bursa. Numerous subcortical degenerative cystic ricketts ges are seen in the lateral tibial plateau.Minimal joint effusion. No soft tissue abnormality. IMPRESSION: No fracture or acute finding of the knee identifiable. Patient has very advanced for age bone and joint degenerative change as detailed including intra-freddy cular calcifications. Clinical concerns for internal derangement or occult bony injury could be further assessed with MR im aging.
--- NOTE | 2020-08-08 08:51 | RAD REPORT ---
EXAM DESCRIPTION: RAD - Hand Left 3 View - 08/08/2020 8:15 am CLINICAL HISTORY: pain fall COMPARISON: None. FINDINGS: No fracture confirmed and no dislocation or periosteal reaction. Punctate bone density adj acent to the second digit PIP joint appears corticated on all sides is not believed to be a bone avul mik. Patient has very advanced for age degenerative change at the trapezium first metacarpal articulation. Joint space is narrowed. Marginal spurring is seen and there several periarticular or intra-articula r calcifications present. The IP and MCP joints are normal. No foreign body or other soft tissue abno rmality. IMPRESSION: No fracture or acute finding identifiable. Very advanced for age degenerative change at the trapezium first metacarpal articulation.
--- NOTE | 2020-08-08 08:53 | RAD REPORT ---
EXAM DESCRIPTION: RAD - Elbow Left 3 View - 08/08/2020 8:15 am CLINICAL HISTORY: PAIN FALL COMPARISON: None. FINDINGS: No fracture is identified and no elevated posterior fat pad. There is no dislocation or pe riosteal reaction noted. Minimal degenerative at the humerus ulna medial articular margin. No foreign body or other soft tissue abnormality. IMPRESSION: Negative left elbow examination for acute finding.
--- NOTE | 2020-08-08 09:05 | ER ---
Nurse's Notes [facility] Name: Carmina Stewart Age: 50 yrs Sex: Female : 1970 Arrival Date: 08/08/2020 Time: 07:14 Bed 14 Private MD: Diagnosis: Left elbow pain;Left knee pain;left hand pain;closed head injury;left periorbital contusion;left hand contusion Presentation: 08/08 07:24 Chief complaint: Patient states: slipped on wet floor this morning, fell onto left knee iw and left wrist, also hit left side of face , no LOC. 07:24 Acuity: ARIES 4 iw 07:25 Coronavirus screen: At this time, the client does not indicate any symptoms associated iw with coronavirus-19. Ebola Screen: Patient negative for fever greater than or equal to 101.5 degrees Fahrenheit, and additional compatible Ebola Virus Disease symptoms Patient denies exposure to infectious person. Patient denies travel to an Ebola-affected area in the 21 days before illness onset. No symptoms or risks identified at this time. Initial Sepsis Screen: Does the patient meet any 2 criteria? No. Patient's initial sepsis screen is negative. Does the patient have a suspected source of infection? No. Patient's initial sepsis screen is negative. Risk Assessment: Do you want to hurt yourself or someone else? Patient reports no desire to harm self or others. Onset of symptoms was August 08, 2020. 07:25 Method Of Arrival: Ambulatory iw Triage Assessment: 07:27 General: Appears in no apparent distress. obese, well groomed, Behavior is calm, tw2 cooperative, appropriate for age. Pain:. 07:27 Pain: Complains of pain in left leg and left wrist. EENT: No signs and/or symptoms were tw2 reported regarding the EENT system. Neuro: Level of Consciousness is awake, alert, obeys commands, Oriented to person, place, time, situation. Cardiovascular: Patient's skin is warm and dry. Respiratory: Airway is patent Respiratory effort is even, unlabored, Respiratory pattern is regular, symmetrical. GI: No signs and/or symptoms were reported involving the gastrointestinal system. Abdomen is round non-distended, obese. : No signs and/or symptoms were reported regarding the genitourinary system. Derm: No signs and/or symptoms reported regarding the dermatologic system. Musculoskeletal: Circulation, motion, and sensation intact. Range of motion: intact in all extremities. 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 - Social history:: Smoking status: . Screenin:28 Abuse screen: Denies threats or abuse. Nutritional screening: No deficits noted. tw2 Tuberculosis screening: No symptoms or risk factors identified. Fall Risk None identified. Assessment: 07:33 Reassessment: see triage assessment. tw2 08:15 Reassessment: pt is imaging at this time, not available for vs. tw2 08:20 Reassessment: Patient appears in no apparent distress at this time. No changes from tw2 previously documented assessment. Patient and/or family updated on plan of care and expected duration. Pain level reassessed. Patient is alert, oriented x 3, equal unlabored respirations, skin warm/dry/pink. 08:27 Reassessment: provider at bedside at this time with results. tw2 09:17 Reassessment: Patient appears in no apparent distress at this time. Patient and/or tw2 family updated on plan of care and expected duration. Pain level reassessed. Patient is alert, oriented x 3, equal unlabored respirations, skin warm/dry/pink. Patient states feeling better. Vital Signs: 07:25 BP 187 / 108; Pulse 76; Resp 16; Temp 97.6; Pulse Ox 98% on R/A; iw 07:33 BP 152 / 87; Pulse 66; Resp 17; Pulse Ox 97% on R/A; tw2 08:20 BP 156 / 86; Pulse 67; Resp 18; Pulse Ox 97% on R/A; Pain 8/10; tw2 09:17 BP 145 / 88; Pulse 65; Resp 17; Pulse Ox 100% on R/A; Pain 6/10; tw2 09:17 Pain 6/10; tw2 ED Course: 07:14 Patient arrived in ED. ag5 07:20 Mitul Iyer MD is Attending Physician. ps1 07:22 Bed in low position. Call light in reach. Side rails up X 1. Pulse ox on. NIBP on. tw2 07:25 Triage completed. iw 07:26 Linda Lujan, RN is Primary Nurse. tw2 07:26 Arm band placed on. tw2 07:44 CT Head Brain wo Cont In Process Unspecified. EDMS 08:15 Hand Left 3 View XRAY In Process Unspecified. EDMS 08:15 Knee Left 3 View XRAY In Process Unspecified. EDMS 08:15 Elbow Left 3 View In Process Unspecified. EDMS 08:23 Warm blanket given. Pillow given. tw2 08:28 No provider procedures requiring assistance completed. Patient did not have IV access tw2 during this emergency room visit. 09:04 Pasquale Cifuentes MD is Referral Physician. ps1 Administered Medications: 08:19 Drug: [place] 5 mg-325 mg 1 tabs {Note: RASS 0.} Route: PO; tw2 09:17 Follow up: Pain 6/10 Adult; Response: No adverse reaction; Pain is decreased; RASS: tw2 Alert and Calm (0) Outcome: 09:04 Discharge ordered by MD. ps1 09:18 Discharged to home ambulatory. tw2 09:18 Condition: stable 09:18 Discharge instructions given to patient, Instructed on discharge instructions, follow up and referral plans. no drinking with medication, no driving heavy equipment, medication usage, CMS checks Demonstrated understanding of instructions, follow-up care, medications, Prescriptions given X 2. 09:18 Patient left the ED. tw2 Signatures: Dispatcher [employer] EDMS Elizabeth Paul RN RN iw Linda Lujan RN RN tw2 Mitul Iyer MD MD ps1 Laura Gonzalez ag5 Corrections: (The following items were deleted from the chart) 07:28 07:27 General: Appears in no apparent distress. obese, well groomed, Behavior is calm, tw2 cooperative, appropriate for age, tw2 07:33 07:27 Pain: Complains of pain in left wrist tw2 tw2
--- NOTE | 2020-08-08 09:05 | EDPHYS ---
Physician Documentation [facility] Name: Carmina Stewart Age: 50 yrs Sex: Female : 1970 Arrival Date: 08/08/2020 Time: 07:14 Bed 14 Private MD: ED Physician Mitul Iyer HPI: 08/08 07:29 This 50 yrs old Female presents to ER via Ambulatory with complaints of Fall ps1 Injury, Knee Pain, Hand Injury. 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 Now states that the left hand has bruising and ps1 swelling to the dorsal aspect just proximal to 3rd MCP. Has left knee pain without deformity or signs of injury. Hit head and small contusion to left inferior periorbital tissues. No LOC. Pain moderate. No nausea or vomiting. Has known HTN. Elevated 2/2 pain and white coat. . 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 - Social history:: Smoking status: . ROS: 07:29 Constitutional: Negative for fever, chills, and weight loss, Eyes: Negative for injury, ps1 pain, redness, and discharge, Cardiovascular: Negative for chest pain, palpitations, and edema, Respiratory: Negative for shortness of breath, cough, wheezing, and pleuritic chest pain, Abdomen/GI: Negative for abdominal pain, nausea, vomiting, diarrhea, and constipation, Skin: Negative for injury, rash, and discoloration, Neuro: Negative for headache, weakness, numbness, tingling, and seizure. 07:29 MS/extremity: Positive for injury or acute deformity, contusion, tenderness, of the face, left hand and left leg. Exam: 07:31 Constitutional: This is a well developed, well nourished patient who is awake, alert, ps1 and in no acute distress. Chest/axilla: Normal chest wall appearance and motion. Nontender with no deformity. No lesions are appreciated. Cardiovascular: Regular rate and rhythm. No gallops, murmurs, or rubs. Normal PMI, no JVD. No pulse deficits. Respiratory: Lungs have equal breath sounds bilaterally, clear to auscultation and percussion. No rales, rhonchi or wheezes noted. No increased work of breathing, no retractions or nasal flaring. Abdomen/GI: Soft, non-tender, with normal bowel sounds. No distension or tympany. No guarding or rebound. No evidence of tenderness throughout. Skin: Warm, dry with normal turgor. Normal color with no rashes, no lesions, and no evidence of cellulitis. Neuro: Awake and alert, GCS 15, oriented to person, place, time, and situation. Cranial nerves II-XII grossly intact. Sensory grossly intact. 07:31 Head/face: Noted is contusion, that is superficial, of the left lower eyelid. 07:31 Musculoskeletal/extremity: Extremities: grossly normal except: noted in the dorsum of left hand: pain, tenderness, noted in the left leg: pain. Vital Signs: 07:25 BP 187 / 108; Pulse 76; Resp 16; Temp 97.6; Pulse Ox 98% on R/A; iw 07:33 BP 152 / 87; Pulse 66; Resp 17; Pulse Ox 97% on R/A; tw2 08:20 BP 156 / 86; Pulse 67; Resp 18; Pulse Ox 97% on R/A; Pain 8/10; tw2 09:17 BP 145 / 88; Pulse 65; Resp 17; Pulse Ox 100% on R/A; Pain 6/10; tw2 09:17 Pain 6/10; tw2 MDM: 07:33 Differential diagnosis: abrasion, closed head injury, contusion, fracture, sprain, ps1 strain. Data reviewed: vital signs, nurses notes. Counseling: I had a detailed discussion with the patient and/or guardian regarding:. 07:36 Patient medically screened. ps1 08/08 07:29 Order name: Hand Left 3 View XRAY; Complete Time: 09:01 ps1 08/08 07:29 Order name: Knee Left 3 View XRAY; Complete Time: 09: [facility] 08/08 07:29 Order name: CT Head Brain wo Cont; Complete Time: 08:25 [facility] 08/08 07:59 Order name: Elbow Left 3 View; Complete Time: 09:01 [facility] 08/08 08:32 Order name: Zafar wrap-joint; Complete Time: 08:34 tw2 Administered Medications: 08:19 Drug: Tucker 5 mg-325 mg 1 tabs {Note: RASS 0.} Route: PO; tw2 09:17 Follow up: Pain 6/10 Adult; Response: No adverse reaction; Pain is decreased; RASS: tw2 Alert and Calm (0) Disposition: 08/08/20 09:04 Discharged to Home. Impression: Left elbow pain, Left knee pain, left hand pain, closed head injury, left periorbital contusion, left hand contusion. - Condition is Stable. - Discharge Instructions: Contusion. - Prescriptions for Anaprox DS 550 mg Oral Tablet - take 1 tablet by ORAL route every 12 hours As needed; 20 tablet. Robaxin 500 mg Oral Tablet - take 2 tablet by ORAL route every 6 hours As needed; 40 tablet. - Medication Reconciliation Form, Thank You Letter, Antibiotic Education, Prescription Opioid Use form. - Follow up: Emergency Department; When: As needed; Reason: Worsening of condition. Follow up: Pasquale Cifuentes MD; When: As needed; Reason: Worsening of condition. - Problem is new. - Symptoms have improved. Signatures: Dispatcher [employer] EDAZ Linda Lujan RN RN tw2 Mitul Iyer MD MD ps1 Corrections: (The following items were deleted from the chart) 09:18 09:04 08/08/2020 09:04 Discharged to Home. Impression: Left elbow pain; Left knee pain; tw2 left hand pain; closed head injury; left periorbital contusion; left hand contusion. Condition is Stable. Forms are Medication Reconciliation Form, Thank You Letter, Antibiotic Education, Prescription Opioid Use. Follow up: Emergency Department; When: As needed; Reason: Worsening of condition. Follow up: Pasquale Cifuentes; When: As needed; Reason: Worsening of condition. Problem is new. Symptoms have improved. ps1
[2020-08-08 10:49] VITALS: TEMP 97.6
[2020-08-08 11:01] VITALS: BP 145/88; O2SAT 100
== END 2020-08-08 09:18 | disposition home or self-care (01) ==
LOC: ER 07:09
DX: S00.83XA Contusion of other part of head, initial encounter (principal); S60.222A Contusion of left hand, initial encounter; M25.522 Pain in left elbow; W01.0XXA Fall on same level from slipping, tripping and stumbling without subsequent striking against object, initial encounter; Y93.9 Activity, unspecified; Y92.9 Unspecified place or not applicable; Z88.2 Allergy status to sulfonamides; Z88.5 Allergy status to narcotic agent; Z91.040 Latex allergy status; Z91.048 Other nonmedicinal substance allergy status; I10 Essential (primary) hypertension; F41.8 Other specified anxiety disorders
CPT/HCPCS: 70450; 99284

== ENCOUNTER 2020-08-09 01:03 | Emergency (ER) | payer SELFPAY ==
--- OUTSIDE RECORDS SUMMARY | 2020-08-09 01:06 | XMS REPORT | Continuity of Care Document ---
:1970 Author Organization [facility] t Address [address] [place] [address] Dr. Gen[address] [place] [address] Care Team Providers Name Role Phone Unavailable Unavailable Unavailable Problems This patient has no known problems. Allergies, Adverse Reactions, Alerts This patient has no known allergies or adverse reactions. Medications This patient has no known medications. Procedures This patient has no known procedures. Results This patient has no known results.
[2020-08-09] MEDS ORDERED: ONDANSETRON 4 MG/2 ML VIAL ONE (01:42)
[2020-08-09] MEDS ORDERED: NA CHLORIDE 0.9% 1,000 ML ONE (01:42)
[2020-08-09 02:51] LABS: Absolute Lymphocytes (CBC) 2.6 K/uL (0.7-4.9); Basophils % 1.2 % (0-1.3); Hematocrit 35.7 % (36.0-45.0); Lymphocytes % 39.8 % (15.3-44.8); MPV 9.3 fL (7.6-11.3); RBC Red Blood Cell Count 3.75 M/uL (3.86-4.86)
[2020-08-09 03:07] LABS: Albumin 3.9 g/dL (3.4-5.0); Bilirubin Total 0.4 mg/dL (0.2-1.0); Potassium 3.6 mmol/L (3.5-5.1)
--- NOTE | 2020-08-09 03:10 | ER ---
Nurse's Notes [facility] Name: Carmina Stewart Age: 50 yrs Sex: Female : 1970 Arrival Date: 08/09/2020 Time: 01:05 Bed 7 Private MD: Diagnosis: Headache;Fall due to bumping against object;Concussion without loss of consciousness Presentation: 08/09 01:08 Onset of symptoms was August 09, 2020. sg 01:08 Note pt was seen yesterday for a fall, reports hitting head, wrist and the knees. sg 01:20 Chief complaint: Patient states: headache after falling earlier today. with nausea and rv vomiting, blurring of vision. pain of 10/10. Coronavirus screen: Client denies travel out of the [place] in the last 14 days. Ebola Screen: No symptoms or risks identified at this time. Initial Sepsis Screen: Does the patient meet any 2 criteria? No. Patient's initial sepsis screen is negative. Does the patient have a suspected source of infection? No. Patient's initial sepsis screen is negative. Risk Assessment: Do you want to hurt yourself or someone else? Patient reports no desire to harm self or others. 01:20 Method Of Arrival: Ambulatory rv 01:20 Acuity: ARIES 3 rv Triage Assessment: 01:20 General: Appears uncomfortable, Behavior is calm, cooperative. Pain: Complains of pain rv in head Pain currently is 10 out of 10 on a pain scale. EENT: No signs and/or symptoms were reported regarding the EENT system. Neuro: Level of Consciousness is awake, alert, obeys commands, Oriented to person, place, time, situation. Cardiovascular: Patient's skin is warm and dry. Respiratory: Airway is patent Respiratory effort is even, unlabored. GI: Reports nausea, vomiting. Derm: Skin is intact. CORDWAINER: 01:22 LMP N/A - Post-menopause rv Historical: - Allergies: 01:08 Adhesives; sg 01:08 Demerol; sg 01:08 Latex, Natural Rubber; sg 01:08 Sulfa (Sulfonamide Antibiotics); sg - PMHx: 01:08 Anxiety; Depression; Hypertension; sg - PSHx: 01:08 Cholecystectomy; Tonsillectomy; sg - Immunization history:: Adult Immunizations up to date. - Social history:: Smoking status: Patient denies any tobacco usage or history of. - Family history:: not pertinent. Screenin:22 Abuse screen: Denies threats or abuse. Denies injuries from another. Nutritional rv screening: No deficits noted. Tuberculosis screening: No symptoms or risk factors identified. Fall Risk None identified. Assessment: 01:45 General: Appears in no apparent distress. Behavior is calm, cooperative, appropriate ll2 for age. Pain: Denies pain. Complains of pain in left leg and left arm and left hand. Neuro: Level of Consciousness is awake, alert, obeys commands, Oriented to person, place, time, situation. Cardiovascular: Patient's skin is warm and dry. Respiratory: Airway is patent Respiratory effort is even, unlabored, Respiratory pattern is regular, symmetrical. GI: No signs and/or symptoms were reported involving the gastrointestinal system. GI: Abdomen is round. : No signs and/or symptoms were reported regarding the genitourinary system. EENT: No signs and/or symptoms were reported regarding the EENT system. Derm: No signs and/or symptoms reported regarding the dermatologic system. Musculoskeletal: Circulation, motion, and sensation intact. Range of motion: intact in all extremities. 02:30 Reassessment: Patient and/or family updated on plan of care and expected duration. Pain ll2 level reassessed. Patient is alert, oriented x 3, equal unlabored respirations, skin warm/dry/pink. 03:30 Reassessment: Patient and/or family updated on plan of care and expected duration. Pain ll2 level reassessed. Patient is alert, oriented x 3, equal unlabored respirations, skin warm/dry/pink. Vital Signs: 01:20 BP 187 / 91; Pulse 79; Resp 17; Temp 98.3; Pulse Ox 98% ; Weight 142.88 kg; Height 5 rv ft. 10 in. (177.80 cm); Pain 10/10; 01:45 BP 189 / 98; Pulse 67; Resp 18; Pulse Ox 98% on R/A; ll2 01:20 Body Mass Index 45.20 (142.88 kg, 177.80 cm) rv ED Course: 01:05 Patient arrived in ED. cl3 01:07 Baldo Armstrong MD is Attending Physician. briana 01:08 Arm band placed on. sg 01:09 Triage completed. sg 01:20 Michael, Emerson, RN is Primary Nurse. rv 01:23 Patient has correct armband on for positive identification. Call light in reach. Side rv rails up X 1. youth nutritional monitor on. Pulse ox on. NIBP on. 01:33 Inserted saline lock: 22 gauge in left forearm, using aseptic technique. Missed ds4 attempt(s): 20 gauge in right antecubital area. Bleeding controlled, band aid applied, catheter tip intact. 01:58 CT Head C Spine In Process Unspecified. EDMS 02:33 Comprehensive Metabolic Panel Sent. ds4 02:33 CBC with Diff Sent. ds4 03:10 Vinay Lerner MD is Referral Physician. briana Administered Medications: 02:40 Drug: NS 0.9% 1000 ml Route: IV; Rate: 1 bolus; Site: left antecubital; ea 02:49 Drug: Zofran (Ondansetron) 4 mg Route: IVP; Site: right antecubital; ea Outcome: 03:10 Discharge ordered by . briana 03:49 Patient left the ED. ea Signatures: Dispatcher [employer] EDPasquale Bhatia, RN RN Baldo Au MD MD cha Swanson, Donovan ds4 Barbara Daniel RN RN ea Vicente, Ronaldo, RN Kiana Griffith cl3 Arabella Simpson, RN RN ll2 Corrections: (The following items were deleted from the chart) 01:11 01:08 Acuity: ARIES 3 sg sg
--- NOTE | 2020-08-09 03:10 | EDPHYS ---
Physician Documentation [facility] Name: Carmina Stewart Age: 50 yrs Sex: Female : 1970 Arrival Date: 08/09/2020 Time: 01:05 Bed 7 Private MD: CHANTE Physician Baldo Armstrong HPI: 08/09 01:25 This 50 yrs old Female presents to ER via Ambulatory with complaints of briana Vomiting, Dizziness. 01:25 The patient presents to the emergency department with nausea, vomiting, 5 times since briana the onset of symptoms. Onset: The symptoms/episode began/occurred 1 day(s) ago. Possible causes: unknown. The symptoms are aggravated by nothing. The symptoms are alleviated by nothing. Associated signs and symptoms: The patient has no apparent associated signs or symptoms. Severity of symptoms: At their worst the symptoms were mild in the emergency department the symptoms are unchanged. 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 - Social history:: Smoking status: Patient denies any tobacco usage or history of. - Family history:: not pertinent. ROS: 01:25 Constitutional: Negative for fever, chills, and weight loss, Eyes: Negative for injury, briana pain, redness, and discharge, ENT: Negative for injury, pain, and discharge, Neck: Negative for injury, pain, and swelling, Cardiovascular: Negative for chest pain, palpitations, and edema, Respiratory: Negative for shortness of breath, cough, wheezing, and pleuritic chest pain, Abdomen/GI: Negative for abdominal pain, nausea, vomiting, diarrhea, and constipation, Back: Negative for injury and pain, : Negative for injury, bleeding, discharge, and swelling, Skin: Negative for injury, rash, and discoloration, Psych: Negative for depression, anxiety, suicide ideation, homicidal ideation, and hallucinations, Allergy/Immunology: Negative for hives, rash, and allergies, Endocrine: Negative for neck swelling, polydipsia, polyuria, polyphagia, and marked weight changes, Hematologic/Lymphatic: Negative for swollen nodes, abnormal bleeding, and unusual bruising. 01:25 : Positive for 01:25 MS/extremity: Positive for injury or acute deformity, decreased range of motion, pain, tenderness, of the left hand, left arm and left leg. Exam: 01:25 Constitutional: This is a well developed, well nourished patient who is awake, alert, briana and in no acute distress. Head/Face: Normocephalic, atraumatic. Eyes: Pupils equal round and reactive to light, extra-ocular motions intact. Lids and lashes normal. Conjunctiva and sclera are non-icteric and not injected. Cornea within normal limits. Periorbital areas with no swelling, redness, or edema. ENT: Nares patent. No nasal discharge, no septal abnormalities noted. Tympanic membranes are normal and external auditory canals are clear. Oropharynx with no redness, swelling, or masses, exudates, or evidence of obstruction, uvula midline. Mucous membranes moist. Neck: Trachea midline, no thyromegaly or masses palpated, and no cervical lymphadenopathy. Supple, full range of motion without nuchal rigidity, or vertebral point tenderness. No Meningismus. Chest/axilla: Normal chest wall appearance and motion. Nontender with no deformity. No lesions are appreciated. Cardiovascular: Regular rate and rhythm with a normal S1 and S2. No gallops, murmurs, or rubs. Normal PMI, no JVD. No pulse deficits. Respiratory: Lungs have equal breath sounds bilaterally, clear to auscultation and percussion. No rales, rhonchi or wheezes noted. No increased work of breathing, no retractions or nasal flaring. Abdomen/GI: Soft, non-tender, with normal bowel sounds. No distension or tympany. No guarding or rebound. No evidence of tenderness throughout. Back: No spinal tenderness. No costovertebral tenderness. Full range of motion. Skin: Warm, dry with normal turgor. Normal color with no rashes, no lesions, and no evidence of cellulitis. Psych: Awake, alert, with orientation to person, place and time. Behavior, mood, and affect are within normal limits. 01:25 Musculoskeletal/extremity: ROM: full active range of motion, full passive range of motion, Circulation is intact in all extremities. Sensation intact. Compartment Syndrome exam of affected extremity: is normal. Joints: All joints appear normal with full range of motion. DVT Exam: No signs of deep vein thrombosis. no pain, no swelling, no tenderness, negative Homans' sign noted on exam, no appreciated bluish discoloration, no erythema, no increased warmth. 01:25 Neuro: Orientation: is normal, appropriate for stated age, no acute changes, Mentation: is normal, appropriate for stated age, no acute changes, Memory: is normal, appropriate for stated age, no acute changes, Cranial nerves: grossly normal, is grossly normal based on the patient's age, no acute changes, Cerebellar function: is grossly normal, Motor: is grossly normal based on the patient's age, no acute changes. Vital Signs: 01:20 BP 187 / 91; Pulse 79; Resp 17; Temp 98.3; Pulse Ox 98% ; Weight 142.88 kg; Height 5 rv ft. 10 in. (177.80 cm); Pain 10/10; 01:45 BP 189 / 98; Pulse 67; Resp 18; Pulse Ox 98% on R/A; ll2 01:20 Body Mass Index 45.20 (142.88 kg, 177.80 cm) rv MDM: 01:07 Patient medically screened. [facility] 01:28 Differential diagnosis: gastritis, cholecystitis. Data reviewed: vital signs, nurses [facility] notes, lab test result(s), radiologic studies, CT scan. Data interpreted: monitoring analyst: rate is 79 beats/min, rhythm is regular, Pulse oximetry: on room air is 98 %. Test interpretation: by ED physician or midlevel provider: ECG, plain radiologic studies. Counseling: I had a detailed discussion with the patient and/or guardian regarding: the historical points, exam findings, and any diagnostic results supporting the discharge/admit diagnosis, lab results, radiology results. 08/09 01:24 Order name: CBC with Diff [facility] 08/09 01:24 Order name: Comprehensive Metabolic Panel; Complete Time: 03:09 [facility] 08/09 01:31 Order name: CT Head C Spine [facility] 08/09 02:53 Order name: CBC Smear Scan EDMS Administered Medications: 02:40 Drug: NS 0.9% 1000 ml Route: IV; Rate: 1 bolus; Site: left antecubital; ea 02:49 Drug: Zofran (Ondansetron) 4 mg Route: IVP; Site: right antecubital; ea Disposition: 08/09/20 03:10 Discharged to Home. Impression: Headache, Fall due to bumping against object, Concussion without loss of consciousness. - Condition is Stable. - Discharge Instructions: Head Injury, Adult, Fall Prevention in the Home, [id number], Head Injury, Adult, [id number]. - Prescriptions for Zofran 4 mg Oral Tablet - take 1 tablet by ORAL route every 12 hours As needed; 20 tablet. - Medication Reconciliation Form, Thank You Letter, Antibiotic Education, Prescription Opioid Use form. - Follow up: Private Physician; When: 2 - 3 days; Reason: Recheck today's complaints, Continuance of care, Re-evaluation by your physician. Follow up: Vinay Lerner; When: 2 - 3 days; Reason: Recheck today's complaints, Re-evaluation by your physician. - Problem is new. - Symptoms have improved. Signatures: Dispatcher [employer] EDPasquale Bhatia RN RN sg Anderson, Corey, MD MD cha Antunez, Elena, RN RN ea Corrections: (The following items were deleted from the chart) 03:49 03:10 08/09/2020 03:10 Discharged to Home. Impression: Headache; Fall due to bumping ea against object; Concussion without loss of consciousness. Condition is Stable. Discharge Instructions: Head Injury, Adult, Fall Prevention in the Home, [id number], Head Injury, Adult, [id number]. Prescriptions for Zofran 4 mg Oral Tablet - take 1 tablet by ORAL route every 12 hours As needed; 20 tablet. and Forms are Medication Reconciliation Form, Thank You Letter, Antibiotic Education, Prescription Opioid Use. Follow up: Private Physician; When: 2 - 3 days; Reason: Recheck today's complaints, Continuance of care, Re-evaluation by your physician. Follow up: Vinay Lerner; When: 2 - 3 days; Reason: Recheck today's complaints, Re-evaluation by your physician. Problem is new. Symptoms have improved. briana
[2020-08-09 03:51] LABS: Blood Morphology Comment NOT SEEN (NOT SEEN); Platelet Estimate ADEQ; White Blood Cell Scan OK (OK)
[2020-08-09 10:12] VITALS: BP 187/91; TEMP 98.3; O2SAT 98
--- NOTE | 2020-08-09 10:43 | RAD REPORT ---
EXAM DESCRIPTION: CT - Head C Spine Mpr Wo Con - 08/09/2020 5:52 am CLINICAL HISTORY: PAIN COMPARISON: 08/08/2020 TECHNIQUE: Axial CT of the head obtained from the skull apex to the skull base without contrast. Axi al CT images of the cervical spine obtained from the skull base through the thoracic inlet. Sagittal and coronal reformatted images available. FINDINGS: CT head: No acute intracranial hemorrhage identified. No mass, mass effect, shift of the midline, abnormal ext ra-axial fluid collection or CT evidence of acute ischemic change identified. The ventricular system is unremarkable. No acute abnormalities of the supratentorial white matter, basal ganglia, cerebell um, or brainstem. Flattening of the diaphragm of sella. The visualized paranasal sinuses and the mastoids are clear. No skull fracture identified. Visual ized orbits and globes are unremarkable. Cervical CT: Straightening of the cervical lordosis may be secondary to patient positioning. The atlantoaxial, a tlantodental, and occipitoatlantal intervals are preserved. No fracture identified. Vertebral body height preserved. Prevertebral soft tissues are unremarkable. Mild multilevel loss of intervertebral disc height with endplate spondylosis, facet arthropathy, and uncovertebral spurring. Osteophytic spurring of the atlantodental articulation. Visualized skull base is intact. No fracture of the visualized facial bones. Visualized mastoid air c ells and paranasal sinuses are well aerated. Visualized thyroid is unremarkable. No cervical lymphadenopathy. No pneumothorax in the visualized lung apices. IMPRESSION: 1. No acute intracranial abnormality. 2. No acute fracture or subluxation of the cervical spine. 3. Multilevel degenerative change of the cervical spine. This exam was performed according to our departmental dose-optimization program, which includes autom ated exposure control, adjustment of the mA and/or kV according to patient size and/or use of iterati ve reconstruction technique. Electronically signed by: Dewayne Rivas 08/09/2020 2:16 AM HIDE HOUSE SUPERVISOR Due to temporary technical issues with the PACS/Fluency reporting system, reports are being signed by the in house radiologist without review as a courtesy to ensure prompt reporting. The interpreting r adiologist is fully responsible for the content of the report.
== END 2020-08-09 03:49 | disposition home or self-care (01) ==
LOC: ER 01:03
DX: S06.0X0A Concussion without loss of consciousness, initial encounter (principal); W01.198D Fall on same level from slipping, tripping and stumbling with subsequent striking against other object, subsequent encounter; Y93.9 Activity, unspecified; Y92.9 Unspecified place or not applicable; I10 Essential (primary) hypertension; Z88.2 Allergy status to sulfonamides; Z88.5 Allergy status to narcotic agent; Z91.040 Latex allergy status; Z91.048 Other nonmedicinal substance allergy status
CPT/HCPCS: 36415; 70450; 72125; 80053; 85025; 96374; 99284; J2405; J7030

== ENCOUNTER 2021-09-07 13:12 | Emergency (ER) | payer SELFPAY ==
--- OUTSIDE RECORDS SUMMARY | 2021-09-07 13:15 | XMS REPORT | Continuity of Care Document ---
:[address] [facility] t Address [address] [place] [address] Dr. Genao [address] [place] [id number] Care Team Providers Name Role Phone ANT Attending Clinician Unavailable Problems This patient has no known problems. Allergies, Adverse Reactions, Alerts Allergy Allergy Status Severity Reaction(s) Onset Inactive Treating Comm ents Source Name Type Date Date Clinician SULFA Drug Active Swelling 2019-09 [facility] ([facility]ULF[facility] Class 0-27 ity of [facility] 00:00: [place] [facility] 00 [facility]) Branch NO KNOWN Drug Active [facility] ALLERGIE Class ity of S [facility] Medications This patient has no known medications. Procedures This patient has no known procedures. Encounters Start End Encounter Admission Attending Care Care Encounter Source Date/Time Date/Time Type Type Clinicians Facility Department ID 2021-06-05 2021-06-05 Outpatient [facility] [id number] [facility] 11:00:00 11:00:00 [id number] [facility] 2021-06-05 2021-06-05 Outpatient R [facility] [id number] [facility]:00[facility] 2020-07-11 Outpatient R [facility] [id number] Univers 19:00:00 19:00:00 [id number] [facility] 2020-07-11 2020-07-11 Outpatient R ANT [facility] [id number] Univers 18:20:00 18:20:00 SAMANTHA [facility] Results This patient has no known results.
[2021-09-07] MEDS ORDERED: LIDOCAINE 1% MPF 5 ML VIAL ONE (15:57)
[2021-09-07] MEDS ORDERED: BUPIVACAINE 0.5% PF 10 ML VIAL ONE (16:16)
[2021-09-07] MEDS ORDERED: IBUPROFEN 400 MG TAB ONE (16:16)
--- NOTE | 2021-09-07 16:38 | RAD REPORT ---
EXAM DESCRIPTION: RAD - Finger-Thumb Left - 09/07/2021 4:28 pm CLINICAL HISTORY: laceration COMPARISON: No comparisons FINDINGS: No radiopaque foreign body or fracture seen. Second digit soft tissue swelling is present.
--- NOTE | 2021-09-07 17:09 | EDPHYS ---
Physician Documentation [facility] Name: Carmina Stewart Age: 51 yrs Sex: Female : 1970 Arrival Date: 09/07/2021 Time: 13:14 Bed DIS1 Private MD: Harjeet Worthy T ED Physician Precious Arias HPI: 09/07 16:00 This 51 yrs old Female presents to ER via Ambulatory with complaints of Finger cp Laceration. 16:00 The patient or guardian reports a laceration, simple. The complaints affect the wayne cp side distal phalanx left index finger. Context: The problem was sustained at home, resulted from using new kitchen knife. Onset: The symptoms/episode began/occurred just prior to arrival. Historical: - Allergies: 13:31 Adhesives; ss 13:31 Latex, Natural Rubber; ss 13:31 Sulfa (Sulfonamide Antibiotics); ss - PMHx: 13:31 Anxiety; Depression; Hypertension; ss - Immunization history:: Client reports receiving the 2nd dose of the Covid vaccine. - Social history:: Smoking status: Patient reports the use of cigarette tobacco products, smokes one-half pack cigarettes per day. ROS: 16:02 Skin: Positive for laceration(s), of the wayne side distal phalanx left index finger. cp 16:02 All other systems are negative. cp Exam: 17:07 Skin: injury, laceration(s), the wound is approximately 1.5 cm(s), of the wayne side cp distal phalanx left index finger, that can be described as clean, linear, with mild bleeding. 17:07 Constitutional: The patient appears in no acute distress, alert, awake, comfortable, cp well developed, well nourished. 17:07 Musculoskeletal/extremity: Extremities: noted in the distal phalanx left index finger: cp ROM: full active range of motion, in the left index finger, Tendon exam: specific tendon testing normal through active and passive range of motion Nails: no signs of injury, 2 point discrimination intact. Vital Signs: 13:32 Pulse 77; Resp 18; Temp 98.2(TE); Pulse Ox 97% on R/A; Weight 131.54 kg; Height 5 ft. ss 10 in. (177.80 cm); Pain 7/10; 13:35 BP 152 / 94; ss 13:32 Body Mass Index 41.61 (131.54 kg, 177.80 cm) ss Laceration: 17:05 Wound Repair of 1.5cm ( 0.6in ) subcutaneous laceration to wayne side distal phalanx cp left index finger. Linear shaped.. Distal neuro/vascular/tendon intact. Anesthesia: Digital block administered with 5 mls of Lido/Marcaine. Wound prep: Moderate cleansing by me, Wound irrigation by me. Skin closed with 4 5-0 Prolene using interrupted sutures and sterile technique. Dressed with pressure dressing. Patient tolerated well. MDM: 15:54 Patient medically screened. cp 16:38 Test interpretation: by ED physician or midlevel provider: xrays of left index finger cp negative for fracture. 17:00 Differential diagnosis: open fracture, simple laceration, tendon injury. cp 17:08 Data reviewed: vital signs, nurses notes, radiologic studies, plain films. cp 17:08 Counseling: I had a detailed discussion with the patient and/or guardian regarding: the cp historical points, exam findings, and any diagnostic results supporting the discharge/admit diagnosis, radiology results, the need for outpatient follow up, a family practitioner, to return to the emergency department if symptoms worsen or persist or if there are any questions or concerns that arise at home. Response to treatment: the patient's symptoms have markedly improved after treatment, and as a result, I will discharge patient. 09/07 15:59 Order name: XRAY Finger-Thumb Left; Complete Time: 17:05 cp 09/07 17:05 Interpretation: Report reviewed. cp 09/07 16:02 Order name: Dressing - Wound; Complete Time: 17:06 cp 09/07 16:02 Order name: Gloves, Sterile; Complete Time: 17:06 cp 09/07 16:02 Order name: Setup Suture Tray; Complete Time: 17:06 cp 09/07 17:05 Order name: Dressing - Wound; Complete Time: 17:25 cp 09/07 17:05 Order name: Finger Splint; Complete Time: 17:25 cp Administered Medications: 16:20 Drug: Ibuprofen 800 mg Route: PO; ss 17:06 Follow up: Response: No adverse reaction 16:45 Drug: Lidocaine (1 %) 10 ml {Note: administered by MARIA LUISA Beasley.} Volume: 20 ml; ss Route: Infiltration; 16:45 Drug: Marcaine (bupivacaine) (0.5 %) 10 ml {Note: administered by PA. Gale} ss Volume: 10 ml; Route: Infiltration; Disposition: 17:20 Chart complete. cp Disposition Summary: 09/07/21 17:09 Discharge Ordered Location: Home cp Problem: new cp Symptoms: have improved cp Condition: Stable cp Diagnosis - Laceration without foreign body of other finger without damage to nail - left index cp finger Followup: cp - With: Private Physician - When: 7 - 10 days - Reason: Staple/Suture removal Discharge Instructions: - Discharge Summary Sheet cp - Laceration Care, Adult cp Forms: - Medication Reconciliation Form cp - Thank You Letter cp - Antibiotic Education cp - Prescription Opioid Use cp Addendum: 09/09/2021 18:51 Co-signature as Attending Physician, Precious Arias MD. m a2 Signatures: Dispatcher [employer] Yane Andres RN RN ss Page, Corey, PA PA cp Alzahri, Mohammad, MD MD ma2 Corrections: (The following items were deleted from the chart) 09/07 13:32 13:31 Allergies: Demerol; ss ss 16:01 15:59 This 51 yrs old Female presents to ER via Ambulatory with complaints of Finger cp Laceration. cp
--- NOTE | 2021-09-07 17:09 | ER ---
Nurse's Notes [facility] Name: Carmina Stewart Age: 51 yrs Sex: Female : 1970 Arrival Date: 09/07/2021 Time: 13:14 Bed DIS1 Private MD: Harjeet Worthy T Diagnosis: Laceration without foreign body of other finger without damage to nail-left index finger Presentation: 09/07 13:32 Chief complaint: Patient states: laceration to L index finger that occurred 1 hour ago. ss Pt reports it was a brand new knife. Coronavirus screen: Client denies travel out of the [place] in the last 14 days. Ebola Screen: Patient denies exposure to infectious person. Patient denies travel to an Ebola-affected area in the 21 days before illness onset. Initial Sepsis Screen: Does the patient meet any 2 criteria? No. Patient's initial sepsis screen is negative. Does the patient have a suspected source of infection? No. Patient's initial sepsis screen is negative. Risk Assessment: Do you want to hurt yourself or someone else? Patient reports no desire to harm self or others. Onset of symptoms was September 07, 2021. 13:32 Method Of Arrival: Ambulatory ss 13:32 Acuity: ARIES 4 ss Historical: - Allergies: 13:31 Adhesives; ss 13:31 Latex, Natural Rubber; ss 13:31 Sulfa (Sulfonamide Antibiotics); ss - PMHx: 13:31 Anxiety; Depression; Hypertension; ss - Immunization history:: Client reports receiving the 2nd dose of the Covid vaccine. - Social history:: Smoking status: Patient reports the use of cigarette tobacco products, smokes one-half pack cigarettes per day. Screenin:51 Abuse screen: Denies threats or abuse. Denies injuries from another. Nutritional ss screening: No deficits noted. Tuberculosis screening: Never had TB. Fall Risk None identified. Assessment: 15:51 General: Appears in no apparent distress. comfortable, Behavior is calm, cooperative. ss Pain: Complains of pain in palmar aspect of distal phalanx of left index finger Pain currently is 7 out of 10 on a pain scale. Quality of pain is described as tender, throbbing. Neuro: Level of Consciousness is awake, alert, obeys commands, Oriented to person, place, time, situation. Cardiovascular: Capillary refill < 3 seconds is brisk in bilateral fingers. Respiratory: Airway is patent Respiratory effort is even, unlabored, Respiratory pattern is regular, symmetrical. Derm: Skin is pink, warm \T\ dry. normal. Vital Signs: 13:32 Pulse 77; Resp 18; Temp 98.2(TE); Pulse Ox 97% on R/A; Weight 131.54 kg; Height 5 ft. ss 10 in. (177.80 cm); Pain 7/10; 13:35 BP 152 / 94; ss 13:32 Body Mass Index 41.61 (131.54 kg, 177.80 cm) ss ED Course: 13:14 Patient arrived in ED. mr 13:15 Harjeet Worthy MD is Private Physician. mr 13:32 Arm band placed on right wrist. ss 13:33 Triage completed. ss 15:51 Patient has correct armband on for positive identification. ss 15:53 Baldo Tidwell PA is PHCP. cp 15:53 Precious Arias MD is Attending Physician. cp 16:04 Yane Ochoa RN is Primary Nurse. ss 16:28 XRAY Finger-Thumb Left In Process Unspecified. EDMS 17:08 Assist provider with laceration repair on palmar aspect of distal phalanx of left index ss finger that was 2.5 cm. or less using sutures. Patient did not have IV access during this emergency room visit. Administered Medications: 16:20 Drug: Ibuprofen 800 mg Route: PO; ss 17:06 Follow up: Response: No adverse reaction ss 16:45 Drug: Lidocaine (1 %) 10 ml {Note: administered by PA. Gale} Volume: 20 ml; ss Route: Infiltration; 16:45 Drug: Marcaine (bupivacaine) (0.5 %) 10 ml {Note: administered by PA. Gale} ss Volume: 10 ml; Route: Infiltration; Outcome: 17:09 Discharge ordered by . cp 17:25 Discharged to home ambulatory. ss 17:25 Condition: good 17:25 Discharge instructions given to patient, family, Instructed on discharge instructions, follow up and referral plans. medication usage, Demonstrated understanding of instructions, follow-up care, medications. 17:26 Patient left the ED. ss Signatures: Dispatcher [employer] [facility] Sheridan Gonzalez mr Yane Ochoa RN RN ss Baldo Tidwell PA PA cp Corrections: (The following items were deleted from the chart) 13:32 13:31 Allergies: Demerol; ss ss
[2021-09-07 17:37] VITALS: TEMP 98.2; O2SAT 97
[2021-09-07 17:38] VITALS: BP 152/94
== END 2021-09-07 17:25 | disposition home or self-care (01) ==
LOC: ER 13:12
PROC: 0JQK0ZZ Repair Left Hand Subcutaneous Tissue and Fascia, Open Approach (ICD-10-PCS; principal; 2021-09-07)
DX: S61.211A Laceration without foreign body of left index finger without damage to nail, initial encounter (principal); W26.0XXA Contact with knife, initial encounter; Y92.009 Unspecified place in unspecified non-institutional (private) residence as the place of occurrence of the external cause; I10 Essential (primary) hypertension; Z88.2 Allergy status to sulfonamides; Z91.040 Latex allergy status; Z91.048 Other nonmedicinal substance allergy status; F17.210 Nicotine dependence, cigarettes, uncomplicated
CPT/HCPCS: 99283

== ENCOUNTER 2023-02-01 09:22 | Emergency (ER) | payer OTHER, SELFPAY ==
--- OUTSIDE RECORDS SUMMARY | 2023-02-01 09:25 | XMS REPORT | Continuity of Care Document ---
:1970 Author Organization [facility] t Address [address] [address] Care Team Providers Name Role Phone SAMANTHA CAIN Attending Clinician Unavailable Problems This patient has no known problems. Allergies, Adverse Reactions, Alerts Allergy Allergy Status Severity Reaction(s) Onset Inactive Treating Comm ents Source Name Type Date Date Clinician SULFA Drug Active Swelling 2019-09 [facility] (SULFONA Class 0-27 ity of [facility] 00:00: [place] [facility]) Branch NO KNOWN Drug Active [facility] ALLERGIE Class ity of S [facility] Medications This patient has no known medications. Procedures This patient has no known procedures. Encounters Start End Encounter Admission Attending Care Care Encounter Source Date/Time Date/Time Type Type Clinicians Facility Department ID 2021-06-05 2021-06-05 Outpatient [facility] [id number] Univers 11:00:00 11:00:00 [id number] [facility] 2021-06-05 2021-06-05 Outpatient R [facility] [id number] Univers 11:00:00 11:00:00 [facility] 2020-07-11 2020-07-11 Outpatient R [facility] [id number] Univers 19:00:00 19:00:00 [id number] [facility] 2020-07-11 2020-07-11 Outpatient R ANT [facility] [id number] Univers 18:20:00 18:20:00 SAMANTHA [facility] Results This patient has no known results.
[2023-02-01] MEDS ORDERED: METOPROLOL TAR 50 MG TAB ONE (09:52)
[2023-02-01] MEDS ORDERED: NA CHLORIDE 0.9% 1,000 ML ONE (09:53)
[2023-02-01] MEDS ORDERED: LORazepam 2 MG/ML VIAL ONE (09:53)
[2023-02-01] MEDS ORDERED: ONDANSETRON 4 MG/2 ML VIAL ONE (09:53)
[2023-02-01] MEDS ORDERED: METOPROLOL TARTRATE 5 MG/5 ML INJ IV ONE (09:53)
[2023-02-01] MEDS ORDERED: FAMOTIDINE 20 MG/2 ML VIAL IV ONE (09:53)
[2023-02-01] MEDS ORDERED: ASPIRIN 81 MG CHEWABLE TABLET ONE (09:53)
[2023-02-01 10:14] LABS: Absolute Lymphocytes (CBC) 1.5 K/uL (0.7-4.9); Hematocrit 38.1 % (36.0-45.0); Lymphocytes % 34.1 % (15.3-44.8); MCV 95.6 fL (80-100); MPV 7.9 fL (7.6-11.3); RBC Red Blood Cell Count 3.98 M/uL (3.86-4.86)
[2023-02-01 10:17] LABS: Protime INR 1.02
--- NOTE | 2023-02-01 10:26 | RAD REPORT ---
EXAM DESCRIPTION: Moise Single View02/01/2023 10:13 am CLINICAL HISTORY: Chest pain COMPARISON: 2018 FINDINGS: The lungs appear clear of acute infiltrate. The heart is normal size IMPRESSION: No acute abnormalities displayed
[2023-02-01 10:34] LABS: ALT/SGPT 24 U/L (13-56); AST/SGOT 13 U/L (15-37); Albumin 3.4 g/dL (3.4-5.0); Alkaline Phosphatase 98 U/L (45-117); BUN Blood Urea Nitrogen 14 mg/dL (7-18); Bicarbonate 27 mEq/L (21-32); Bilirubin Total 0.3 mg/dL (0.2-1.0); Glomerular Filtration Rate 93 ml/min (=/>90); Glucose Level 107 mg/dL (74-106); Lipase 33 U/L (13-75); Magnesium 2.2 mg/dL (1.6-2.4); NT PRO-BNP 47 pg/mL (<125); Potassium 4.2 mEq/L (3.5-5.1); Protein, Total 6.5 g/dL (6.4-8.2); Sodium Level 140 mEq/L (136-145); Troponin High Sensitivity 5.3 pg/mL (<58.9)
[2023-02-01 11:07] LABS: Bilirubin Direct < 0.1 mg/dL (0-0.2); Bilirubin Indirect, Calculated ND mg/dL (0.2-0.8)
[2023-02-01 11:48] LABS: Specific Gravity 1.008 (1.005-1.030); Urine Bilirubin NEGATIVE (Negative); Urine Blood Negative (Negative); Urine Clarity Clear (Clear); Urine Color Light-Yellow (Yellow); Urine Glucose NEGATIVE (Negative); Urine Protein NEGATIVE (Negative); Urine Urobilinogen Normal (Normal); Urine pH 6.5 (5.0-7.0)
--- NOTE | 2023-02-01 12:25 | RAD REPORT ---
EXAM DESCRIPTION: CT - Chest For Pe Angio - 02/01/2023 12:07 pm CLINICAL HISTORY: Chest pain COMPARISON: None. TECHNIQUE: Dynamically enhanced axial 3 mm thick images of the chest were obtained during administra tion of 95 mL Isovue 370 IV contrast. Coronal and oblique reconstruction images were generated and re viewed. Exam utilizes a protocol for optimal evaluation of pulmonary arterial tree. Maximum intensity projections 3D imaging was utilized All CT scans are performed using dose optimization technique as appropriate and may include automated exposure control or mA/KV adjustment according to patient size. FINDINGS: A pulmonary embolus is not seen. A thoracic aortic aneurysm is not noted. A pleural effusion is not seen. A pericardial effusion is not seen. A lung consolidation is not present. IMPRESSION: Negative for a pulmonary embolism.
--- NOTE | 2023-02-01 12:32 | ER ---
Nurse's Notes [facility] Name: Carmina Stewart Age: 52 yrs Sex: Female : 1970 Arrival Date: 02/01/2023 Time: 09:22 Bed 7 Private MD: Diagnosis: Essential (primary) hypertension;Chest pain on breathing;Chest pain, unspecified Presentation: 02/01 09:33 Chief complaint: Headache and intermittent left sided chest pain x 2 days, home BP hb 183/111 today. Coronavirus screen: At this time, the client does not indicate any symptoms associated with coronavirus-19. Ebola Screen: No symptoms or risks identified at this time. Initial Sepsis Screen: Does the patient meet any 2 criteria? No. Patient's initial sepsis screen is negative. Does the patient have a suspected source of infection? No. Patient's initial sepsis screen is negative. Risk Assessment: Do you want to hurt yourself or someone else? Patient reports no desire to harm self or others. Onset of symptoms was January 31, 2023. 09:33 Method Of Arrival: Ambulatory hb 09:33 Acuity: ARIES 3 hb Historical: - Allergies: 09:35 Adhesives; hb 09:35 Latex, Natural Rubber; hb 09:35 Sulfa (Sulfonamide Antibiotics); hb - Home Meds: 09:35 carvedilol 25 mg oral tablet 2 times per day [Active]; diclofenac sodium 75 mg oral hb tablet, delayed release (enteric coated) 2 times per day [Active]; hydrochlorothiazide 25 mg Oral tablet daily [Active]; valsartan 320 mg oral tablet daily [Active]; venlafaxine 150 mg oral Capsule, ER 24 hr daily [Active]; montelukast 10 mg oral tablet daily [Active]; Vraylar 3 mg oral capsule daily [Active]; diazepam 10 mg Oral tablet 3 times per day [Active]; methocarbamol 750 mg Oral tablet twice a day [Active]; lamotrigine 250 mg oral Tablet, Extended Release 24 hr daily [Active]; Zyrtec 10 mg Oral tablet daily [Active]; - PMHx: 09:35 Anxiety; Depression; Hypertension; hb - PSHx: 09:35 Appendectomy; Cholecystectomy; hb - Family history:: not pertinent. Screenin:36 [facility] ED Fall Risk Assessment (Adult) History of falling in the last 3 months, vg1 including since admission No falls in past 3 months (0 pts). Abuse screen: Denies threats or abuse. Denies injuries from another. Nutritional screening: No deficits noted. Tuberculosis screening: No symptoms or risk factors identified. Assessment: 09:36 General: Appears in no apparent distress. uncomfortable, Behavior is calm, cooperative. vg1 Pain: Complains of pain in anterior aspect of left upper chest and head Pain radiates to Left shoulder Pain currently is 8 out of 10 on a pain scale. Neuro: Level of Consciousness is awake, alert, obeys commands, Oriented to person, place, time, situation, Reports dizziness, headache. Cardiovascular: Patient's skin is warm and dry. Respiratory: Airway is patent Respiratory effort is even, unlabored. GI: Abdomen is round obese, Reports nausea. : No signs and/or symptoms were reported regarding the genitourinary system. EENT: No signs and/or symptoms were reported regarding the EENT system. Derm: Skin is pink, warm \T\ dry. Musculoskeletal: Circulation, motion, and sensation intact. 10:45 Reassessment: Patient appears in no apparent distress at this time. Patient and/or vg1 family updated on plan of care and expected duration. Pain level reassessed. Patient is alert, oriented x 3, equal unlabored respirations, skin warm/dry/pink. Patient denies pain at this time. Patient states feeling better. 11:39 Reassessment: Patient appears in no apparent distress at this time. Patient and/or iw family updated on plan of care and expected duration. Pain level reassessed. Patient is alert, oriented x 3, equal unlabored respirations, skin warm/dry/pink. Patient states feeling better. Patient states symptoms have improved. Vital Signs: 09:33 BP 181 / 105; Pulse 73; Resp 16; Temp 98.3; Pulse Ox 99% on R/A; Weight 131.09 kg; hb Height 5 ft. 10 in. ; Pain 10/10; 09:48 BP 140 / 96; Pulse 66; Resp 16; Pulse Ox 95% on R/A; iw 10:21 BP 138 / 90; Pulse 64; Resp 16; Pulse Ox 96% on R/A; vg1 10:45 BP 123 / 76; Pulse 50; Resp 20; Pulse Ox 95% on R/A; vg1 09:33 Body Mass Index 41.47 (131.09 kg, 177.8 cm) hb 09:33 Pain Scale: Adult hb Pedro Coma Score: 11:24 Eye Response: spontaneous(4). Motor Response: obeys commands(6). Verbal Response: briana oriented(5). Total: 15. ED Course: 09:24 Patient arrived in ED. ts1 09:33 Baldo Armstrong MD is Attending Physician. briana 09:33 Lilian Wheeler, RN is Primary Nurse. vg1 09:35 Triage completed. hb 09:36 Patient has correct armband on for positive identification. Placed in gown. Bed in low vg1 position. Call light in reach. Side rails up X 1. Adult w/ patient. Client placed on continuous cardiac and pulse oximetry monitoring. NIBP monitoring applied. 09:36 No provider procedures requiring assistance completed. vg1 09:40 Arm band placed on. hb 10:00 Missed attempt(s): 20 gauge in left forearm. Bleeding controlled, band aid applied, iw catheter tip intact. 10:09 Inserted saline lock: 22 gauge in right hand, using aseptic technique. Blood collected. iw 10:15 XRAY Chest (1 view) In Process Unspecified. EDMS 11:40 Urinalysis w/ reflexes Sent. iw 12:09 CT Chest For PE Angio In Process Unspecified. EDMS 12:32 Nino Clements MD is Referral Physician. briana Administered Medications: 10:00 Drug: NS 0.9% IV 1000 ml Route: IV; Rate: 125 ml/hr; Site: right hand; vg1 10:06 Drug: Metoprolol PO 50 mg Route: PO; vg1 10:06 Drug: Aspirin PO Chewable Tablet 162 mg Route: PO; vg1 10:07 Drug: Ondansetron IVP 4 mg Route: IVP; Site: right hand; vg1 10:09 Drug: Famotidine IVP 20 mg Route: IVP; Site: right hand; vg1 10:10 Not Given (Physician Discretion): Metoprolol IVP 5 mg IVP once; Hold for SBP <100 or HR vg1 <60. 10:18 Drug: Ativan IVP 1 mg Route: IVP; Site: right hand; vg1 Medication: 09:36 VIS not applicable for this client. vg1 Outcome: 12:32 Discharge ordered by MD. warren 13:17 Discharged to home ambulatory, with family. iw 13:17 Condition: good 13:17 Discharge instructions given to patient, family, Instructed on discharge instructions, follow up and referral plans. Demonstrated understanding of instructions, follow-up care. 13:18 Patient left the ED. iw Signatures: Dispatcher [employer] EDBaldo Trammell MD MD cha Williams, Irene, RN RN iw Maribeth Multani RN RN hb Garcia, Victoria, RN RN 1 Pavithra Cormier PAS PAS ts1
--- NOTE | 2023-02-01 12:32 | EDPHYS ---
Physician Documentation [facility] Name: Carmina Stewart Age: 52 yrs Sex: Female : 1970 Arrival Date: 02/01/2023 Time: 09: Bed 7 Private MD: CHANTE Physician Baldo Armstrong HPI: 02/01 11:20 This 52 yrs old Female presents to ER via Ambulatory with complaints of Blood briana Pressure Problem, Nausea, Headache. 11:20 The patient presents to the emergency department with nausea, that is mild. briana 11:22 The patient complains of pain to the forehead. The patient describes the headache as briana aching. The patient or guardian reports chest pain that is located primarily in the anterior chest wall, left. Onset: 2 day(s) ago. Possible causes: unknown. The symptoms are aggravated by movement, The symptoms are alleviated by nothing. The pain does not radiate. Associated signs and symptoms: Pertinent positives:. Headache History: The patient has had previous headaches and this one is similar to previous episodes. Historical: - Allergies: 09:35 Adhesives; hb 09:35 Latex, Natural Rubber; hb 09:35 Sulfa (Sulfonamide Antibiotics); hb - Home Meds: 09:35 carvedilol 25 mg oral tablet 2 times per day [Active]; diclofenac sodium 75 mg oral hb tablet, delayed release (enteric coated) 2 times per day [Active]; hydrochlorothiazide 25 mg Oral tablet daily [Active]; valsartan 320 mg oral tablet daily [Active]; venlafaxine 150 mg oral Capsule, ER 24 hr daily [Active]; montelukast 10 mg oral tablet daily [Active]; Vraylar 3 mg oral capsule daily [Active]; diazepam 10 mg Oral tablet 3 times per day [Active]; methocarbamol 750 mg Oral tablet twice a day [Active]; lamotrigine 250 mg oral Tablet, Extended Release 24 hr daily [Active]; Zyrtec 10 mg Oral tablet daily [Active]; - PMHx: 09:35 Anxiety; Depression; Hypertension; hb - PSHx: 09:35 Appendectomy; Cholecystectomy; hb - Family history:: not pertinent. ROS: 11:22 Constitutional: Negative for fever, chills, and weight loss, Eyes: Negative for injury, briana pain, redness, and discharge, ENT: Negative for injury, pain, and discharge, Neck: Negative for injury, pain, and swelling, Abdomen/GI: Negative for abdominal pain, nausea, vomiting, diarrhea, and constipation, Back: Negative for injury and pain, : Negative for injury, bleeding, discharge, and swelling, MS/Extremity: Negative for injury and deformity, Skin: Negative for injury, rash, and discoloration, Neuro: Negative for headache, weakness, numbness, tingling, and seizure, Psych: Negative for depression, anxiety, suicide ideation, homicidal ideation, and hallucinations, Allergy/Immunology: Negative for hives, rash, and allergies, Endocrine: Negative for neck swelling, polydipsia, polyuria, polyphagia, and marked weight changes, Hematologic/Lymphatic: Negative for swollen nodes, abnormal bleeding, and unusual bruising. 11:22 Cardiovascular: Positive for chest pain. 11:22 Respiratory: Positive for pleurisy, of the left clavicle and anterior aspect of left upper chest. Exam: 11:22 Constitutional: This is a well developed, well nourished patient who is awake, alert, briana and in no acute distress. Head/Face: Normocephalic, atraumatic. Eyes: Pupils equal round and reactive to light, extra-ocular motions intact. Lids and lashes normal. Conjunctiva and sclera are non-icteric and not injected. Cornea within normal limits. Periorbital areas with no swelling, redness, or edema. ENT: Nares patent. No nasal discharge, no septal abnormalities noted. Tympanic membranes are normal and external auditory canals are clear. Oropharynx with no redness, swelling, or masses, exudates, or evidence of obstruction, uvula midline. Mucous membranes moist. Neck: Trachea midline, no thyromegaly or masses palpated, and no cervical lymphadenopathy. Supple, full range of motion without nuchal rigidity, or vertebral point tenderness. No Meningismus. Chest/axilla: Normal chest wall appearance and motion. Nontender with no deformity. No lesions are appreciated. Cardiovascular: Regular rate and rhythm with a normal S1 and S2. No gallops, murmurs, or rubs. Normal PMI, no JVD. No pulse deficits. Respiratory: Lungs have equal breath sounds bilaterally, clear to auscultation and percussion. No rales, rhonchi or wheezes noted. No increased work of breathing, no retractions or nasal flaring. Abdomen/GI: Soft, non-tender, with normal bowel sounds. No distension or tympany. No guarding or rebound. No evidence of tenderness throughout. Back: No spinal tenderness. No costovertebral tenderness. Full range of motion. Skin: Warm, dry with normal turgor. Normal color with no rashes, no lesions, and no evidence of cellulitis. MS/ Extremity: Pulses equal, no cyanosis. Neurovascular intact. Full, normal range of motion. Neuro: Awake and alert, GCS 15, oriented to person, place, time, and situation. Cranial nerves II-XII grossly intact. Motor strength 5/5 in all extremities. Sensory grossly intact. Cerebellar exam normal. Normal gait. Psych: Awake, alert, with orientation to person, place and time. Behavior, mood, and affect are within normal limits. 11:22 ECG was reviewed by the Attending Physician. 11:29 Musculoskeletal/extremity: DVT Exam: No signs of deep vein thrombosis. no pain, no briana swelling, no tenderness, negative Homans' sign noted on exam, no appreciated bluish discoloration, no erythema, no increased warmth. Vital Signs: 09:33 BP 181 / 105; Pulse 73; Resp 16; Temp 98.3; Pulse Ox 99% on R/A; Weight 131.09 kg; hb Height 5 ft. 10 in. ; Pain 10/10; 09:48 BP 140 / 96; Pulse 66; Resp 16; Pulse Ox 95% on R/A; iw 10:21 BP 138 / 90; Pulse 64; Resp 16; Pulse Ox 96% on R/A; vg1 10:45 BP 123 / 76; Pulse 50; Resp 20; Pulse Ox 95% on R/A; vg1 09:33 Body Mass Index 41.47 (131.09 kg, 177.8 cm) hb 09:33 Pain Scale: Adult hb Pedro Coma Score: 11:24 Eye Response: spontaneous(4). Motor Response: obeys commands(6). Verbal Response: briana oriented(5). Total: 15. MDM: 09:33 Patient medically screened. briana 09:34 Patient medically screened. briana 11:24 HEART Score: History: Slightly Suspicious (0), ECG: Normal (0), Age: > 45 and < 65 briana years (1), Risk Factors: 1 or 2 risk factors (1), [Hypertension] [Obesity] Troponin: < or = 1 x Normal Limit (0). The patient was given aspirin in the Emergency Department. AUBRIE Risk Score: TOTAL SCORE = 0. Data reviewed: vital signs, nurses notes, lab test result(s), EKG, radiologic studies, plain films. Consideration of Admission/Observation Escalation of care including admission/observation considered. I considered the following discharge prescriptions or medication management in the emergency department Medications were administered in the Emergency Department. See MAR. Test considered but Not performed: Ultrasound NO GB AND LE VENOUS DOPPLER. 02/01 09:36 Order name: Basic Metabolic Panel; Complete Time: 11:02/01 09:36 Order name: CBC with Diff; Complete Time: : [facility] 02/01 09:36 Order name: LFT's; Complete Time: :02/01 09:36 Order name: Magnesium; Complete Time: 11:02/01 09:36 Order name: NT PRO-BNP; Complete Time: 11:02/01 09:36 Order name: PT-INR; Complete Time: 11:02/01 09:36 Order name: Troponin HS; Complete Time: 11:02/01 09:36 Order name: Lipase; Complete Time: 11: briana 02/01 09:36 Order name: Urinalysis w/ reflexes; Complete Time: 12:31 02/01 11:20 Order name: Troponin High Sensitivity: AT NOON; Complete Time: 12:31 02/01 09:36 Order name: XRAY Chest (1 view); Complete Time: 11:02/01 11:20 Order name: CT Chest For PE Angio; Complete Time: 12:31 02/01 09:36 Order name: EKG; Complete Time: 09:37 02/01 09:36 Order name: Cardiac monitoring; Complete Time: 09:50 [facility] 02/01 09:36 Order name: EKG - Nurse/Tech; Complete Time: 09:50 briana 02/01 09:36 Order name: IV Saline Lock; Complete Time: 10: [facility] 02/01 09:36 Order name: Labs collected and sent; Complete Time: 10:02/01 09:36 Order name: O2 Per Protocol; Complete Time: :50 02/01 09:36 Order name: O2 Sat Monitoring; Complete Time: :50 briana EC:22 Rate is 62 beats/min. Rhythm is regular. QRS Mckinney is Normal. PA interval is normal. QRS briana interval is normal. QT interval is normal. No Q waves. T waves are Normal. No ST changes noted. Clinical impression: Normal ECG and No evidence of ischemia. Interpreted by me. Reviewed by me. Administered Medications: 10:00 Drug: NS 0.9% IV 1000 ml Route: IV; Rate: 125 ml/hr; Site: right hand; vg1 10:06 Drug: Metoprolol PO 50 mg Route: PO; vg1 10:06 Drug: Aspirin PO Chewable Tablet 162 mg Route: PO; vg1 10:07 Drug: Ondansetron IVP 4 mg Route: IVP; Site: right hand; vg1 10:09 Drug: Famotidine IVP 20 mg Route: IVP; Site: right hand; vg1 10:10 Not Given (Physician Discretion): Metoprolol IVP 5 mg IVP once; Hold for SBP <100 or HR vg1 <60. 10:18 Drug: Ativan IVP 1 mg Route: IVP; Site: right hand; vg1 Disposition Summary: 02/01/23 12:32 Discharge Ordered Location: Home briana Problem: new briana Symptoms: have improved briana Condition: Stable briana Diagnosis - Essential (primary) hypertension briana - Chest pain on breathing briaan - Chest pain, unspecified briana Followup: briana - With: Private Physician - When: 2 - 3 days - Reason: Recheck today's complaints, Continuance of care, Re-evaluation by your physician Followup: briana - With: - When: 2 - 3 days - Reason: Recheck today's complaints, Re-evaluation by your physician Discharge Instructions: - Discharge Summary Sheet briana - Nonspecific Chest Pain, Adult briana - Hypertension, Adult briana - Nonspecific Chest Pain, Adult, [id number] briana - Hypertension, Adult, [id number] briana - How to Take Your Blood Pressure, [id number] briana - Aspirin and Your Heart briana - Managing Your Hypertension briana Forms: - Medication Reconciliation Form briana - Thank You Letter briana - Antibiotic Education briana - Prescription Opioid Use briana Signatures: Dispatcher [employer] EDBaldo Trammell MD MD cha Baxter, Heather, RN RN Liam, Lilian, RN RN vg1
[2023-02-01 13:28] VITALS: TEMP 98.3
[2023-02-01 13:45] VITALS: BP 123/76; O2SAT 95
--- NOTE | 2023-02-02 17:34 | EKG ---
Test Date: 2023-02-01 Test Time: 09:45:55 Destination Imagination Coordinator: MAYURI MEASUREMENT RESULTS: Intervals: Rate: 62 GA: 136 QRSD: 104 QT: 414 QTc: 420 [place]: P: 21 GA: 136 QRS: 29 T: 42 INTERPRETIVE STATEMENTS: Normal sinus rhythm Normal ECG Compared to ECG 02/06/2018 19:55:17 Sinus tachycardia no longer present ST (T wave) deviation no longer present Electronically Signed On 02-02-23 17:33:15 CDT by Nino Clements
== END 2023-02-01 13:18 | disposition home or self-care (01) ==
LOC: ER 09:22
DX: R07.1 Chest pain on breathing (principal); I10 Essential (primary) hypertension; F41.9 Anxiety disorder, unspecified; F32.A Depression, unspecified; Z88.2 Allergy status to sulfonamides; Z91.040 Latex allergy status; Z91.048 Other nonmedicinal substance allergy status
CPT/HCPCS: 36415; 71045; 71275; 80048; 80076; 81003; 83690; 83735; 83880; 84484; 85025; 85610; 93005; J2405; J7030; Q9967

== ENCOUNTER 2023-03-14 08:36 | Emergency (ER) | payer SELFPAY ==
--- OUTSIDE RECORDS SUMMARY | 2023-03-14 08:42 | XMS REPORT | Continuity of Care Document ---
:1970 Author Organization [facility] t Address [address] [address] Care Team Providers Name Role Phone SAMANTHA CAIN Attending Clinician Unavailable Problems This patient has no known problems. Allergies, Adverse Reactions, Alerts Allergy Allergy Status Severity Reaction(s) Onset Inactive Treating Comm ents Source Name Type Date Date Clinician SULFA Drug Active Swelling 2019-09 [facility] (SULFONA Class 0-27 ity of MIDE 00:00: [place] [facility]) Branch NO KNOWN Drug Active [facility] ALLERGIE Class ity of S [facility] Medications This patient has no known medications. Procedures This patient has no known procedures. Encounters Start End Encounter Admission Attending Care Care Encounter Source Date/Time Date/Time Type Type Clinicians Facility Department ID 2021-06-05 2021-06-05 Outpatient [facility] [id number] [facility] 11:00:00 11:00:00 [id number] [facility] 2021-06-05 2021-06-05 Outpatient R [facility] [id number] Univers 11:00:00 11:00:00 [facility] 2020-07-11 2020-07-11 Outpatient R [facility] [id number] Univers 19:00:00 19:00:00 [id number] [facility] 2020-07-11 2020-07-11 Outpatient R ANT [facility] [id number] Univers 18:20:00 18:20:00 SAMANTHA [facility] Results This patient has no known results.
[2023-03-14] MEDS ORDERED: BUPIVACAINE 0.5% PF 10 ML VIAL ONE (09:08)
--- NOTE | 2023-03-14 09:37 | EDPHYS ---
Physician Documentation [facility] Name: Carmina Stewart Age: 52 yrs Sex: Female : 1970 Arrival Date: 03/14/2023 Time: 08:36 Bed 20 Private MD: ED Physician Gilbert Kitchen HPI: 03/14 08:47 This 52 yrs old Female presents to ER via Ambulatory with complaints of Toothache, jmm Abscess. 08:47 The patient presents with pain, swelling. Onset: The symptoms/episode began/occurred jmm gradually, 3 day(s) ago. Duration: The symptoms are continuous. Modifying factors: The symptoms are alleviated by over the counter medications, the symptoms are aggravated by. This is a 52 year old female with a history of anxiety that presents to the ED with complaints of left lower molar pain and swelling beginning this past Friday. Partially relieved with old amoxicillin from a friend. pain intensified last night. Denies fever. denies drainage.. Historical: - Allergies: 08:55 Adhesives; ss 08:55 Latex, Natural Rubber; ss 08:55 Sulfa (Sulfonamide Antibiotics); ss - PMHx: 08:55 Anxiety; Depression; Hypertension; ss - PSHx: 08:55 Appendectomy; Cholecystectomy; ss - Immunization history:: Client reports receiving the 2nd dose of the Covid vaccine. - Social history:: Smoking status: unknown. ROS: 08:47 Constitutional: Negative for fever, chills, and weight loss, Cardiovascular: Negative jmm for chest pain, palpitations, and edema, Respiratory: Negative for shortness of breath, cough, wheezing, and pleuritic chest pain. 08:47 ENT: Positive for dental pain. Exam: 09:53 Constitutional: This is a well developed, well nourished patient who is awake, alert, jmm and in no acute distress. Head/Face: atraumatic. Eyes: EOMI, no conjunctival erythema appreciated ENT: Moist Mucus Membranes Neck: Trachea midline, Supple 09:53 Chest/axilla: Normal chest wall appearance and motion. Cardiovascular: Regular rate and rhythm. No edema appreciated Respiratory: Normal respirations, no respiratory distress appreciated Abdomen/GI: Non distended Back: Normal ROM Skin: General appearance color normal MS/ Extremity: Moves all extremities, no obvious deformities appreciated, no edema noted to the lower extremities Neuro: Awake and alert Psych: Behavior is normal, Mood is normal, Patient is cooperative and pleasant 09:53 ENT: Dental exam: dental caries, that is moderate, specifically in the lower left second molar (#18) and lower left first molar (#19), gum swelling, that is moderate, specifically in the lower left second molar (#18) and lower left first molar (#19). Vital Signs: 08:53 BP 130 / 93; Pulse 97; Resp 17; Temp 98.4(O); Pulse Ox 99% on R/A; Weight 127.01 kg; ss Height 5 ft. 10 in. ; Pain 10/10; 08:53 Body Mass Index 40.18 (127.01 kg, 177.8 cm) ss 08:53 Pain Scale: Adult ss MDM: 08:47 Patient medically screened. m 09:54 Differential diagnosis: dental caries, dental abscess. Data reviewed: vital signs, jmm nurses notes. I considered the following discharge prescriptions or medication management in the emergency department Medications were administered in the Emergency Department. See MAR. Counseling: I had a detailed discussion with the patient and/or guardian regarding: the historical points, exam findings, and any diagnostic results supporting the discharge/admit diagnosis, the need for outpatient follow up, to return to the emergency department if symptoms worsen or persist or if there are any questions or concerns that arise at home. ED course: Left interior alveolar block performed. 2 ml of 0.5% marcaine injected. Patient tolerated well. Good anesthesia achieved. Patient states feeling much better. . Administered Medications: 09:04 Drug: Clindamycin PO 300 mg Route: PO; 3 09:51 Follow up: Response: No adverse reaction 3 09:26 Drug: Bupivacaine Infiltration (0.5 %) 20 ml {Note: administered by PA. Kevin} 3 Volume: 10 ml; Route: Infiltration; 09:52 Follow up: Response: No adverse reaction 3 Disposition: 13:18 Co-signature as Attending Physician, Gilbert Kitchen DO I was immediately available on-site ms3 in the Emergency Department for consultation in the care of the patient. Disposition Summary: 03/14/23 09:36 Discharge Ordered Location: Home jm Condition: Stable jm Diagnosis - Dental caries, unspecified jmm Followup: [facility] - With: Guanako Villafana DDS - When: 2 - 3 days - Reason: Recheck today's complaints, Continuance of care, Re-evaluation by your physician Discharge Instructions: - Discharge Summary Sheet [facility] - Dental Caries, Adult [facility] Forms: - Medication Reconciliation Form [facility] - Thank You Letter [facility] - Antibiotic Education [facility] - Prescription Opioid Use [facility] - [email or web address] [facility] Prescriptions: - Clindamycin HCl 300 mg Oral Capsule - take 1 capsule by ORAL route every 6 hours for 10 days; 40 capsule; Refills: 0, [facility] Product Selection Permitted - Ultracet 37.5-325 mg Oral Tablet - take 1 tablet by ORAL route every 6 hours As needed May take 1 to 2 tablets by [facility] mouth every 6 hours as needed for pain.; 20 tablet; Refills: 0, Product Selection Permitted Signatures: Guillermo Millard PA PA jmm Blanchard, Shelby RN RN ss Gilbert Kitchen DO DO ms3 Amanda Kulkarni RN RN eh3
--- NOTE | 2023-03-14 09:37 | ER ---
Nurse's Notes [facility] Name: Carmina Stewart Age: 52 yrs Sex: Female : 1970 Arrival Date: 03/14/2023 Time: 08:36 Bed 20 Private MD: Diagnosis: Dental caries, unspecified Presentation: 03/14 08:53 Chief complaint: Patient states: L lower dental pain that began True. Pt reports that ss she has been taking Amoxicillin. Coronavirus screen: Client denies travel out of the [place] in the last 14 days. Ebola Screen: Patient denies exposure to infectious person. Patient denies travel to an Ebola-affected area in the 21 days before illness onset. Initial Sepsis Screen: Does the patient meet any 2 criteria? No. Patient's initial sepsis screen is negative. Does the patient have a suspected source of infection? No. Patient's initial sepsis screen is negative. Risk Assessment: Do you want to hurt yourself or someone else? Patient reports no desire to harm self or others. Onset of symptoms was March 10, 2023. 08:53 Method Of Arrival: Ambulatory ss 08:53 Acuity: ARIES 4 ss Triage Assessment: 09:48 General: Appears in no apparent distress. uncomfortable. EENT: Reports pain in mouth. eh3 Historical: - Allergies: 08:55 Adhesives; ss 08:55 Latex, Natural Rubber; ss 08:55 Sulfa (Sulfonamide Antibiotics); ss - PMHx: 08:55 Anxiety; Depression; Hypertension; ss - PSHx: 08:55 Appendectomy; Cholecystectomy; ss - Immunization history:: Client reports receiving the 2nd dose of the Covid vaccine. - Social history:: Smoking status: unknown. Screenin:56 [facility] ED Fall Risk Assessment (Adult) History of falling in the last 3 months, ss including since admission No falls in past 3 months (0 pts). Abuse screen: Denies threats or abuse. Denies injuries from another. Nutritional screening: No deficits noted. Tuberculosis screening: Never had TB. Assessment: 08:56 General: Appears uncomfortable, Behavior is calm, cooperative. Pain: Complains of pain ss in lower left first molar Is continuous. Neuro: Level of Consciousness is awake, alert, obeys commands, Oriented to person, place, time, situation. Respiratory: Airway is patent Respiratory effort is even, unlabored, Respiratory pattern is regular, symmetrical. EENT: Oral mucosa is moist. Derm: No signs and/or symptoms reported regarding the dermatologic system. Skin is intact, is healthy with good turgor, Skin is dry, Skin is pink, warm \T\ dry. normal. 09:00 Reassessment: Patient appears in no apparent distress at this time. Patient and/or eh3 family updated on plan of care and expected duration. Pain level reassessed. Patient is alert, oriented x 3, equal unlabored respirations, skin warm/dry/pink. Vital Signs: 08:53 BP 130 / 93; Pulse 97; Resp 17; Temp 98.4(O); Pulse Ox 99% on R/A; Weight 127.01 kg; ss Height 5 ft. 10 in. ; Pain 10/10; 08:53 Body Mass Index 40.18 (127.01 kg, 177.8 cm) 08:53 Pain Scale: Adult ss ED Course: 08:38 [facility] ED. [facility] 08:41 Guillermo Millard PA is PHCP. [facility] 08:41 Gilbert Kitchen DO is Attending Physician. jmm 08:55 Triage completed. ss 08:55 Arm band placed on right wrist. ss 08:56 Patient has correct armband on for positive identification. 09:04 Amanda Kulkarni, RN is Primary Nurse. eh3 09:35 Guanako Villafana DDS is Referral Physician. jmm 09:47 No provider procedures requiring assistance completed. Patient did not have IV access eh3 during this emergency room visit. Administered Medications: 09:04 Drug: Clindamycin PO 300 mg Route: PO; eh3 09:51 Follow up: Response: No adverse reaction eh3 09:26 Drug: Bupivacaine Infiltration (0.5 %) 20 ml {Note: administered by MARIA LUISA Brown.} 3 Volume: 10 ml; Route: Infiltration; 09:52 Follow up: Response: No adverse reaction eh3 Medication: 08:56 VIS not applicable for this client. ss Outcome: 09:36 Discharge ordered by . [facility] 09:48 Discharged to home ambulatory. eh3 09:48 Condition: stable 09:48 Discharge instructions given to patient, Instructed on discharge instructions, follow up and referral plans. medication usage, Demonstrated understanding of instructions, follow-up care, medications, Prescriptions given X 2. 09:51 Patient left the ED. eh3 Signatures: Guillermo Millard PA PA jmm Blanchard, Shelby, RN RN Anita Stafford Erin, RN RN 3
[2023-03-14 09:56] VITALS: BP 130/93; TEMP 98.4; O2SAT 99
== END 2023-03-14 09:51 | disposition home or self-care (01) ==
LOC: ER 08:36
DX: K02.9 Dental caries, unspecified (principal); Z88.2 Allergy status to sulfonamides; Z91.040 Latex allergy status; Z91.048 Other nonmedicinal substance allergy status
CPT/HCPCS: 99283